=== PATIENT | female | born 1930 | race Caucasian/White ===

== ENCOUNTER 2018-01-13 13:22 | Inpatient (IN) | payer MEDICARE, BC ==
[2018-01-13] MEDS ORDERED: NS 0.9% 1000 ML* 1,000 ML IV ONE ×2 (13:26→20:30)
[2018-01-13] MEDS ORDERED: LORazepam INJ* 2 MG/ML 1 ML VIAL IV PUSH ONE ×2 (13:50→14:50)
[2018-01-13] MEDS ORDERED: LORazepam INJ* 2 MG/ML 1 ML VIAL ONE (13:51)
--- NOTE | 2018-01-13 13:56 | ED ---
Altered Mental Status - HPI Summary HPI Summary: Patient is an 87 y/o female BIBA who presents to the ED c/o AMS s/p fall. She was found by her house keeper on the floor. Last known well was yesterday during the day, it is speculated she fell at 20:00 last night. Patient has not been able to get up off the floor, and is disoriented. Patient is a level 5 caveat due to her AMS, therefor a proper history was not able to be obtained. - History Of Current Complaint Stated Complaint: CODE SAUER Time Seen by Provider: 01/13/18 13:25 Hx Obtained From: EMS Hx From Patient Unobtainable Due To: Altered Mental Status Last Known Well Date: 01/12/18 Onset/Duration: Unknown, Still Present Timing: Constant Character: Confusion Aggravating Factor(s): Unknown Alleviating Factor(s): Unknown - Allergies/Home Medications Allergies/Adverse Reactions: Allergies Allergy/AdvReac Type Severity Reaction Status Date / Time No Known Allergies Allergy Verified 08/13/12 10:24 Home Medications: Home Medications Dorzolamide/Timolol OPTH (NF) [Cosopt (NF)] 1 drop BOTH EYES BID 01/13/18 [ History Confirmed 01/13/18] PMH/Surg Hx/FS Hx/Imm Hx Endocrine/Hematology History: Reports: Hx Anemia Denies: Hx Anticoagulant Therapy, Hx Diabetes, Hx Thyroid Disease, Hx Unexplained Bleeding Cardiovascular History: Denies: Hx Aneurysm, Hx Angina, Hx Angioplasty, Hx Auto Implanted Cardiovert Defib, Hx Cardiac Arrest, Hx Cardiomegaly, Hx Congenital Heart Disease, Hx Congestive Heart Failure, Hx Coronary Artery Disease, Hx Deep Vein Thrombosis, Hx Hypercholesterolemia, Hx Hypotension, Hx Hypertension, Hx Pacemaker/ICD, Hx Peripheral Vascular Disease, Hx Rheumatic Fever, Hx Syncope, Hx Valvular Heart Disease, Other Cardiovascular Problems/Disorders Respiratory History: Denies: Hx Asthma, Hx Chronic Obstructive Pulmonary Disease (COPD) GI History: Reports: Hx Gall Bladder Disease, Hx Hiatal Hernia, Hx Ulcer History: Denies: Hx Renal Disease Musculoskeletal History: Reports: Hx Arthritis Sensory History: Reports: Hx Glaucoma, Hx Macular Degeneration - LEFT EYE Denies: Hx Vision Problem, Hx Deafness, Hx Hearing Aid, Hx Hearing Problem, Other Sensory Impairments Opthamlomology History: Reports: Hx Glaucoma, Hx Macular Degeneration - LEFT EYE Denies: Hx Vision Problem, Other Sensory Impairments Neurological History: Denies: Hx Dementia, Hx Developmental Delay, Hx Headaches, Hx Migraine, Hx Seizures, Hx Spinal Cord Injury, Hx Transient Ischemic Attacks (TIA), Other Neuro Impairments/Disorders Psychiatric History: Denies: Hx Substance Abuse - Surgical History Surgery Procedure, Year, and Place: KATE 1975. ANTOINE 1991 - Immunization History Date of Tetanus Vaccine: UNKNOWN Date of Influenza Vaccine: 2006 Infectious Disease History: Denies: Hx Clostridium Difficile, Hx Hepatitis, Hx Human Immunodeficiency Virus (HIV), Hx Shingles, Hx Tuberculosis - Family History Known Family History: Positive: Cardiac Disease - Social History Alcohol Use: None Hx Substance Use: No Substance Use Type: Reports: None Hx Tobacco Use: Yes Smoking Status (MU): Current Every Day Smoker Review of Systems Positive: Bruising Positive: Other - AMS All Other Systems Reviewed And Are Negative: No Physical Exam - Summary Physical Exam Summary: VITAL SIGNS: Reviewed. GENERAL: Patient is a well-developed and obese FEMALE who is lying comfortable in the stretcher. Patient is not in any acute respiratory distress. HEAD AND FACE: No signs of trauma. No ecchymosis, hematomas or skull depressions. No sinus tenderness. EYES: PERRLA, EOMI x 2, No injected conjunctiva, no nystagmus. EARS: Hearing grossly intact. Ear canals and tympanic membranes are within normal limits. MOUTH: Dry. NECK: Supple, non-tender, trachea is midline, no adenopathy, no JVD, no carotid bruit, no c-spine tenderness, neck with full ROM. CHEST: Symmetric, no tenderness at palpation LUNGS: Clear to auscultation bilaterally. No wheezing or crackles. CVS: Irregular rate and rhythm, S1 and S2 present, no murmurs or gallops appreciated. ABDOMEN: Soft, non-tender. No signs of distention. No rebound no guarding, and no masses palpated. Bowel sounds are normal. EXTREMITIES: Right elbow deformed with ecchymosis down to right forearm. Left wrist deformed with ecchymosis on forearm and wrist. Camp boot on RLE. NEURO: Alert but not oriented. Does not follow commands. No acute neurological deficits. Speech is normal. SKIN: Dry and warm GCS: 13 Triage Information Reviewed: Yes Vital Signs Reviewed: Yes Diagnostics - Laboratory Result Diagrams: 01/14/18 05:44 01/14/18 05:44 Lab Statement: Any lab studies that have been ordered have been reviewed, and results considered in the medical decision making process. - Radiology Elbow XR Xray Interpretation: Positive (See Comments) - 1. DISLOCATION OF THE RADIAL HEAD. 2. CHRONIC DISPLACED AND ANGULATED UNUNITED FRACTURE OF THE PROXIMAL ULNA. ED physician reviewed radiology report. Radiology Interpretation Completed By: Radiologist CXR Xray Interpretation: Positive (See Comments) - Stigmata of probable obstructive lung disease. Large retrocardiac hiatal hernia with associated mild compressive atelectasis at the medial lung bases. ED physician reviewed radiology report. Radiology Interpretation Completed By: Radiologist Humerus XR Xray Interpretation: Positive (See Comments) - Chronic appearing fracture dislocation at the elbow with pseudoarthrosis at the proximal ulna and probable pseudoarthrosis at the posterior displaced radius with the capitellum. Overlying soft tissue swelling. Negative for humeral fracture. Advanced arthropathy at the shoulder with humeral acromial abutment and remodeling favoring full-thickness rotator cuff tear. Diffuse decreased bone density and skeletal muscle atrophy. ED physician reviewed this radiology report. Radiology Interpretation Completed By: Radiologist Wrist XR Xray Interpretation: Positive (See Comments) - 1. TRANSVERSE IMPACTED FRACTURE OF THE DISTAL RIGHT RADIUS. 2. PROBABLE NONDISPLACED FRACTURE OF THE DISTAL RIGHT ULNA. 3. TRANSVERSE IMPACTED FRACTURE OF THE DISTAL LEFT RADIUS. 4. TRANSVERSE IMPACTED FRACTURE OF THE DISTAL LEFT ULNA. ED physician reviewed radiology report. Radiology Interpretation Completed By: Radiologist - CT Brain CT CT Interpretation: No Acute Changes - NO EVIDENCE FOR ACUTE INTRACRANIAL ABNORMALITY. ED physician reviewed radiology report. CT Interpretation Completed By: Radiologist - EKG 14:16 Cardiac Rate: NL - 73 bpm EKG Rhythm: Sinus Rhythm EKG Interpretation: LBBB Altered Mental Statu Course/Dx - Course Assessment/Plan: This is a 87-year-old female who presents to the emergency room via ambulance after the patient was found on the floor this afternoon by a cleaning lady they usually cleans her house on Fridays. As per EMS the last time she was seen well it was yesterday and apparently the patient fell at approximately 8 PM. as per EMS since then the patient has been in the floor. Patient is alert but not oriented. Seems that she is very confused. The patient has a deformity in the left wrist and the right elbow. Patient is unable to give any history. From the records the patient has history of glaucoma, macular degeneration,. GI bleed, glaucoma and osteoarthritis. Blood test results shows potassium 3.4, carbon dioxide of 11, anion gap of 20, glucose 217, magnesium 1.6, total creatine kinase of 419, troponin 0.04, and acetaminophen level of 133. Head CT impression: No evidence for acute intracranial abnormality. Chest x-ray Impression: Stigmata peripherally obstructive lung disease. Large retrocardiac hiatal hernia with associated mild compressive atelectasis of the mid lung bases. Elbow x-ray impression: Dislocation of the radial head. Chronic displaced and angulated fracture of the proximal ulna. Humerus x-ray. Chronic appearing fracture dislocation at the elbow. X-ray of the right humerus impression: Chronic appearing fracture dislocation of the elbow. Negative for fracture. Humeral fracture. See complete report as above. Bilateral wrist impression: Transverse impacted fracture of the distal right radius. Probably nondisplaced fracture of the distal right ulna. Transverse impacted fracture of the distal left radius. Transverse impacted fracture of the distal left ulna. Initially when the patient came in the patient was given IV fluids, she was placed in supposing as above the spectrum antibiotic. The acetaminophen level is elevated therefore the patient was given acetylcysteine. At this point I discussed my physical exam, findings and test results with Dr. Green who accepted the patient for admission. The patient is hemodynamically stable but still critical. - Diagnoses Provider Diagnoses: Acute alteration in mental status, Wrist fracture, bilateral, Hiatal hernia, Acetaminophen toxicity, Acetaminophen overdose - Provider Notifications Discussed Care Of Patient With: Pravin Green Time Discussed With Above Provider: 16:00 Instructed by Provider To: Admit As Inpatient - Critical Care Time Critical Care Time: 75-104 min Discharge - Sign-Out/Discharge Documenting (check all that apply): Patient Departure - Admit - Discharge Plan Condition: Stable Disposition: ADMITTED TO [facility] - Billing Disposition and Condition Condition: STABLE Disposition: Admitted to [facility] - Attestation Statements Document Initiated by Scribe: Yes Documenting Scribe: Kisha Denise Provider For Whom Scribe is Documenting (Include Credential): Nikko Lawrence MD Scribe Attestation: Kisha Noland, scribed for Nikko Lawrence MD on 01/14/18 at 0755. Scribe Documentation Reviewed: Yes Provider Attestation: The documentation as recorded by the Kisha dyer accurately reflects the service I personally performed and the decisions made by me, Nikko Lawrence MD
--- NOTE | 2018-01-13 14:24 | RAD ---
Indication: Shortness of breath. History of tobacco use. Obstructive lung disease. Comparison: August 13, 2012 Technique: Upright AP 1400 hours Report: Elevated lung volumes. Large retrocardiac hiatal hernia with associated mild compressive atelectasis at the medial lung bases. The lungs and pleural spaces are otherwise clear. Negative for pneumothorax. Top normal heart size accounting for AP technique and hiatal hernia. Unremarkable central pulmonary vasculature and mediastinal contours aside from the hiatal hernia. Advanced arthropathy of the shoulders noted. IMPRESSION: #. Stigmata of probable obstructive lung disease. #. Large retrocardiac hiatal hernia with associated mild compressive atelectasis at the medial lung bases.
--- NOTE | 2018-01-13 14:24 | RAD ---
INDICATION: Right elbow deformity. TECHNIQUE: 3 views of the right elbow were obtained. FINDINGS: There is lateral and posterior dislocation of the radial head relative to the distal humerus. This may be a chronic finding. There is a chronic ununited fracture of the proximal diaphysis of the ulna. The fracture fragments are displaced and angulated. IMPRESSION: 1. DISLOCATION OF THE RADIAL HEAD. 2. CHRONIC DISPLACED AND ANGULATED UNUNITED FRACTURE OF THE PROXIMAL ULNA.
--- NOTE | 2018-01-13 14:26 | RAD ---
Indication: RIGHT elbow deformity. Comparison: RIGHT elbow exam of the same date. Technique: AP and lateral views RIGHT humerus. REPORT AND IMPRESSION: #. Chronic appearing fracture dislocation at the elbow with pseudoarthrosis at the proximal ulna and probable pseudoarthrosis at the posterior displaced radius with the capitellum. Overlying soft tissue swelling. #. Negative for humeral fracture. #. Advanced arthropathy at the shoulder with humeral acromial abutment and remodeling favoring full-thickness rotator cuff tear. #. Diffuse decreased bone density and skeletal muscle atrophy.
--- NOTE | 2018-01-13 14:29 | RAD ---
INDICATION: Bilateral wrist pain. TECHNIQUE: 2 views of both wrists were obtained. FINDINGS: There is bilateral diffuse soft tissue swelling. There is a transverse impacted fracture of the right radial metaphysis. There is also suggestion of a nondisplaced fracture of the distal right ulna. The fractures are likely acute to subacute in duration. There is a transverse impacted fracture of the distal left radius. There is a transverse impacted fracture of the distal left ulna. The fractures appear subacute in duration. IMPRESSION: 1. TRANSVERSE IMPACTED FRACTURE OF THE DISTAL RIGHT RADIUS. 2. PROBABLE NONDISPLACED FRACTURE OF THE DISTAL RIGHT ULNA. 3. TRANSVERSE IMPACTED FRACTURE OF THE DISTAL LEFT RADIUS. 4. TRANSVERSE IMPACTED FRACTURE OF THE DISTAL LEFT ULNA.
[2018-01-13 15:01] LABS: ABS Basophils 0 10^3/ul (0-0.2); ABS Eosinophils 0 10^3/ul (0-0.6); ABS Lymphocytes 0.7 10^3/ul (1.0-4.8); ABS Monocytes 0.3 10^3/ul (0-0.8); ABS Neutrophils 4.4 10^3/ul (1.5-7.7); ABS Nucleated RBC 0 10^3/ul; Eosinophil % 0 % (0-6); Hematocrit 42 % (35-47); Hemoglobin 13.7 g/dl (12.0-16.0); Lymphocyte % 13.6 % (25-47); Mean Corpuscular HGB Conc 33 g/dl (31-36); Mean Corpuscular Hemoglobin 30 pg (27-31); Mean Corpuscular Volume 93 fL (80-97); Mean Platelet Volume 8.9 um3 (7.4-10.4); Nucleated Red Blood Cells % 0.1; Platelet Count 132 10^3/ul (150-450); Red Blood Count 4.53 10^6/ul (4.00-5.40); Red Cell Distribution Width 14 % (10.5-15); White Blood Count 5.5 10^3/ul (3.5-10.8)
[2018-01-13 15:06] LABS: INR 0.94 (0.77-1.02)
--- NOTE | 2018-01-13 15:15 | RAD ---
INDICATION: Altered mental status. COMPARISON: There are no relevant prior studies available for comparison. TECHNIQUE: Contiguous axial sections of the brain were obtained from the skull base to the vertex without contrast. The exam is limited due to motion artifact. FINDINGS: The ventricles, cisterns and sulci are enlarged consistent with age-related atrophy. No significant focal abnormality or mass effect is seen. There is no evidence for hemorrhage. No significant focal osseous abnormality is seen. The visualized portion of the paranasal sinuses and mastoid air cells appear clear. IMPRESSION: NO EVIDENCE FOR ACUTE INTRACRANIAL ABNORMALITY.
[2018-01-13 15:44] LABS: Urine Appearance Clear; Urine Blood Negative (Negative); Urine Color Yellow; Urine Ketones Negative (Negative); Urine Protein Negative (Negative); Urine Specific Gravity 1.024 (1.010-1.030); Urine Urobilinogen Negative (Negative)
[2018-01-13] MEDS ORDERED: Piperacillin/Tazobac ADVAN(*) 3.375 GM in NS 0.9% 100 ML* 100 ML IVPB ONE (16:02)
[2018-01-13] MEDS ORDERED: Magnesium Sulfate 1 GM IV* 1 GM/100 ML BAG IV ONE (16:20)
[2018-01-13 16:23] LABS: EGFR Non-African American 98.6 (>60)
[2018-01-13] MEDS ORDERED: ACETYLCYSTEINE IVPB ONE ×4 (16:30→22:00)
[2018-01-13] MEDS ORDERED: D5W IVPB ONE ×4 (16:30→22:00)
--- NOTE | 2018-01-13 17:04 | ADMNOTE ---
Subjective Date of Service: 01/13/18 Interval History: ADMISSION HISTORY AND PHYSICAL EXAM: Allergies Allergy/AdvReac Type Severity Reaction Status Date / Time No Known Allergies Allergy Verified 08/13/12 10:24 Home Medications Medication Instructions Recorded Confirmed Type Travoprost Z 0.004% OPHTH (NF) 1 drop BOTH EYES BEDTIME 08/13/12 01/13/18 History [Travatan Z 0.004% OPTH (NF)] Dorzolamide/Timolol OPTH (NF) 1 drop BOTH EYES BID 01/13/18 01/13/18 History [Cosopt (NF)] HPI: The patient is very obtunded and could not give any history. She has someone clean her home every Tuesday. That person came today and found her on the floor , unresponsive. 911 was called and she was brought to the ED. Her HCP Jerad Mclean came to the ED. He told me he saw her Tuesday. She had sprained her R ankle but still could walk a little bit with her walker. She otherwise seemed fine. She was not depressed. Family History: Findings - Father of heart disease. Social History: Findings - Lives alone. No alcohol abuse. Smoked in 07/2012, ? recently. SDM is her friend Jerad Mclean [phone]. Past Medical History: Findings - Cholecystectomy, KATE-BSO. No children. Glaucoma, macular degeneration, OA. Review of Systems - Measurements Intake and Output: Intake and Output Last 24 Hours 01/11/18 01/12/18 01/13/18 01/14/18 06:59 06:59 06:59 06:59 Intake Total 1000 Output Total 100 Balance 900 Weight 190 lb Intake: IV Fluids 1000 Output: Residual 100 Basurto 16 Fr 100 - Review of Systems General Comments: Not able to obtain due to poor LOC. Her friend Jerad Mclean and his had not noticed any change in her condition or new c/o up until the last time they had contact with her 3 days ago. Objective Active Medications: Dorzolamide/Timolol (Cosopt (Nf)) 1 drop BOTH EYES BID LETI; Protocol Heparin Sodium (Porcine) (Heparin Vial(*)) 5,000 units SUBCUT Q8HR LETI Potassium Chloride (Potassium Chloride 10 Meq/50 Ml Ivpremix*) 10 meq in 50 mls @ 50 mls/hr IV Q2H LETI Stop: 01/13/18 19:59 Acetylcysteine 12,955 mg/ (Dextrose) 264.775 mls @ 264.775 mls/hr IVPB ONCE ONE ; Protocol Stop: 01/13/18 17:29 Last Admin: 01/13/18 16:39 Dose: 264.775 mls/hr Acetylcysteine 4,318 mg/ (Dextrose) 521.59 mls @ 130.398 mls/hr IVPB ONCE ONE; Protocol Stop: 01/13/18 21:29 Piperacillin Sod/Tazobactam (Sod 3.375 gm/ Sodium Chloride) 100 mls @ 25 mls/ hr IVPB Q8H LETI Potassium Chloride/Sodium Chloride (Ns 0.9% W/ 20 Meq Kcl 1000 Ml*) 1,000 mls @ 100 mls/hr IV PER RATE LETI Travoprost (Travatan Z 0.004% Opth (Nf)) 1 drop BOTH EYES BEDTIME LETI; Protocol Vital Signs - 8 hr 01/13/18 01/13/18 01/13/18 14:10 14:12 14:21 Temperature 93.1 F Pulse Rate 72 67 Respiratory 12 15 16 Rate Blood Pressure 151/78 151/78 (mmHg) O2 Sat by Pulse 95 97 Oximetry 01/13/18 01/13/18 01/13/18 14:50 15:02 15:03 Temperature Pulse Rate 60 54 Respiratory 12 14 Rate Blood Pressure 113/57 (mmHg) O2 Sat by Pulse 95 95 Oximetry 01/13/18 01/13/18 01/13/18 15:33 16:00 16:44 Temperature 95 F Pulse Rate 59 Respiratory 12 19 Rate Blood Pressure 101/48 (mmHg) O2 Sat by Pulse 95 Oximetry Oxygen Devices in Use Now: Nasal Cannula Appearance: Very obtunded, onher R side on ED stretcher. Looks comfortable. Air-warmer covering her. Eyes: No Scleral Icterus Neck: NL Appearance and Movements; NL JVP, No Thyroid Enlargement, Masses Respiratory: Symmetrical Chest Expansion and Respiratory Effort, Clear to Auscultation, Clear to Percussion Cardiovascular: NL Sounds; No Murmurs; No JVD, RRR, No Edema, - Abdominal: NL Sounds; No Tenderness; No Distention, No Hepatosplenomegaly, - Extremities: No Edema, No Clubbing, Cyanosis, - Skin: No Nodules or Sclerosis, - - Ecchymosis L shoulder, L scapula, both wrists Neurological: - - No tremor. Unresponsive to voice or light touch, moving very little. Result Diagrams: 01/13/18 14:40 01/13/18 14:40 Assess/Plan/Problems-Billing Assessment: - Patient Problems (1) Sepsis Current Visit: Yes Status: Acute Comment: Received sepsis fluids, pip/josé miguel. Continue pip/josé miguel, NS+20meqKCL at 100/hr. Heating device in place. Repeat lactic acid 8 PM 01/13. Source not clear (2) Acetaminophen overdose Current Visit: Yes Status: Acute Code(s): T39.1X1A - POISONING BY 4- AMINOPHENOL DERIVATIVES, ACCIDENTAL, INIT SNOMED Code(s): 963540470 Comment: IV acetylcysteine started. Repeat level, LFT's 8PM 01/13 and AM . (3) Glaucoma Current Visit: Yes Status: Acute Code(s): H40.9 - UNSPECIFIED GLAUCOMA SNOMED Code(s): 54071412 Comment: Home eyedrops ordered. (4) Macular degeneration Current Visit: Yes Status: Acute Code(s): H35.30 - UNSPECIFIED MACULAR DEGENERATION SNOMED Code(s): 129340704 Comment: Dx noted. (5) Osteoarthritis Current Visit: Yes Status: Acute Code(s): M19.90 - UNSPECIFIED OSTEOARTHRITIS, UNSPECIFIED SITE SNOMED Code(s): 273116082 Comment: Was independent with a walker until this admission.
[2018-01-13] MEDS: NS 0.9% w/ 20 Meq KCL 1000 ML* 1,000 ML IV SCH (17:25)
[2018-01-13] MEDS: KCL 10 MEQ/50 ML IVPREMIX* 10 MEQ/50 ML BAG IV SCH ×2 (18:10→19:04)
[2018-01-13 20:54] LABS: INR 1.24 (0.77-1.02)
--- NOTE | 2018-01-13 21:34 | OP ---
Operative Report - Blank - Operative Report Date of Operation: 01/13/18 Note: Central Venous Catheter (CVC, Central Line) Placement Date: 01/13/18 Time: 9:00pm Indication: Hemodynamic monitoring/Intravenous access Attending: Esha Chow time-out was completed verifying correct patient, procedure, site, positioning , and special equipment if applicable. The patient was placed in a dependent position appropriate for central line placement based on the vein to be cannulated. The patients left neck was prepped and draped in sterile fashion. 1 % Lidocaine was used to anesthetize the surrounding skin area. A triple lumen 7- Chinese catheter was introduced into the the internal jugular vein> using the Seldinger technique and under ultrasound guidance. The catheter was threaded smoothly over the guide wire and appropriate blood return was obtained. Each lumen of the catheter was evacuated of air and flushed with sterile saline. The catheter was then sutured in place to the skin and a sterile dressing applied. Perfusion to the extremity distal to the point of catheter insertion was checked and found to be adequate. Estimated Blood Loss: None The patient tolerated the procedure well and there were no complications.
[2018-01-13] MEDS ORDERED: Norepinephrine VIAL* 1 MG/ML 4 ML VIAL ONE (22:17)
[2018-01-13 22:28] LABS: EGFR Non-African American 119.7 (>60)
[2018-01-13] MEDS: Latanoprost 0.005%* 2.5 ml BTL BOTH EYES SCH (22:38)
[2018-01-13] MEDS: CMC:Dorzolamide/Timolol OPTH (NF) 10 ML BOT BOTH EYES SCH (22:38)
[2018-01-13] MEDS: Heparin VIAL(*) 5000 UNITS/ML VIAL (FIVE THOUSAND) SUBCUT SCH (22:39)
[2018-01-14] MEDS: DOPamine 800 MG/250 ML IVPREM* 800 MG/250 ML ML CENTR SCH (00:03)
[2018-01-14] MEDS: Norepinephrine VIAL* 4 MG in NS 0.9% 250 ML* 246 ML IV SCH ×4 (00:10→22:20)
[2018-01-14] MEDS: Piperacillin/Tazobac ADVAN(*) 3.375 GM in NS 0.9% 100 ML* 100 ML IVPB SCH ×3 (01:04→16:23)
[2018-01-14] MEDS ORDERED: Ondansetron INJ* 2 MG/ML VIAL ONE (01:12)
[2018-01-14] MEDS: Ondansetron INJ* 2 MG/ML VIAL IV PRN ×2 (01:14→22:36)
[2018-01-14] MEDS ORDERED: Morphine INJ* 2 MG/ML 1 ML SYRINGE (TWO MG - NEW SYRINGE VERSION) IV PRN (03:21)
[2018-01-14] MEDS ORDERED: Morphine VIAL* 4 MG/ML VIAL (1 ml vial) IV ONE (03:29)
[2018-01-14] MEDS ORDERED: D5W IVPB ONE ×3 (04:00→13:00)
[2018-01-14] MEDS ORDERED: ACETYLCYSTEINE IVPB ONE ×3 (04:00→13:00)
--- NOTE | 2018-01-14 04:49 | PN ---
Progress Note - Progress Note Date of Service: 01/14/18 Note: Mrs Drummond mid-shift developed recurrent bradycardia setting off asystole alarms despite addition of norepinephrine GTT. Trial of dopamine GTT failed to resolve and the issues began to appear to be vaso-vagal related to nausea/ wretching and so ondansetron was ordered with improvement. Later, she was noted by nursing to vomit dark blood. Evaluation at that time revealed her tongue to be swollen and ecchymotic apparently having been bitten at some point. It was advised to keep the head of the bed at 30degrees or above and to continue monitoring. There was no tachycardia, hypotension, or airway obstruction.
[2018-01-14] MEDS: Heparin VIAL(*) 5000 UNITS/ML VIAL (FIVE THOUSAND) SUBCUT SCH ×3 (05:35→21:52)
[2018-01-14 05:55] LABS: ABS Basophils 0 10^3/ul (0-0.2); ABS Eosinophils 0 10^3/ul (0-0.6); ABS Lymphocytes 0.8 10^3/ul (1.0-4.8); ABS Monocytes 0.2 10^3/ul (0-0.8); ABS Neutrophils 6.5 10^3/ul (1.5-7.7); ABS Nucleated RBC 0 10^3/ul; Eosinophil % 0 % (0-6); Hematocrit 37 % (35-47); Hemoglobin 12.4 g/dl (12.0-16.0); Lymphocyte % 10.6 % (25-47); Mean Corpuscular HGB Conc 33 g/dl (31-36); Mean Corpuscular Hemoglobin 30 pg (27-31); Mean Corpuscular Volume 91 fL (80-97); Mean Platelet Volume 9.3 um3 (7.4-10.4); Nucleated Red Blood Cells % 0.1; Platelet Count 154 10^3/ul (150-450); Red Blood Count 4.08 10^6/ul (4.00-5.40); Red Cell Distribution Width 14 % (10.5-15); White Blood Count 7.6 10^3/ul (3.5-10.8)
[2018-01-14 06:08] LABS: INR 1.38 (0.77-1.02)
[2018-01-14 06:13] LABS: EGFR Non-African American 79.3 (>60)
[2018-01-14] MEDS ORDERED: Dextrose 50% Syringe 50 ML* 25 GM/50 ML SYRINGE IV PUSH PRN (07:38)
--- NOTE | 2018-01-14 07:49 | PN ---
Subjective Date of Service: 01/14/18 Interval History: She denies pain or hunge, offers no c/o. Family History: Findings - Father of heart disease. Social History: Findings - Lives alone. No alcohol abuse. Smoked in 07/2012, ? recently. SDM is her friend Jerad Mclean [phone]. Past Medical History: Findings - Cholecystectomy, KATE-BSO. No children. Glaucoma, macular degeneration, OA. Objective Active Medications: Dextrose (D50w Syringe 50 Ml*) 12.5 gm IV PUSH .FOR FS < 60 - SS PRN PRN Reason: FS < 60 Dorzolamide/Timolol (Cosopt (Nf)) 1 drop BOTH EYES BID LETI; Protocol Last Admin: 01/13/18 22:38 Dose: Not Given Heparin Sodium (Porcine) (Heparin Vial(*)) 5,000 units SUBCUT Q8HR LETI Last Admin: 01/14/18 05:35 Dose: 5,000 units Piperacillin Sod/Tazobactam (Sod 3.375 gm/ Sodium Chloride) 100 mls @ 25 mls/ hr IVPB Q8H LETI Last Admin: 01/14/18 01:04 Dose: 25 mls/hr Potassium Chloride/Sodium Chloride (Ns 0.9% W/ 20 Meq Kcl 1000 Ml*) 1,000 mls @ 100 mls/hr IV PER RATE [facility] Last Admin: 01/13/18 17:25 Dose: 100 mls/hr Acetylcysteine 8,636 mg/ (Dextrose) 1,043.18 mls @ 65.199 mls/hr IVPB ONCE ONE ; Protocol Stop: 01/14/18 13:29 Last Admin: 01/14/18 05:23 Dose: Not Given Norepinephrine Bitartrate 4 mg (/ Sodium Chloride) 250 mls @ 7.5 mls/hr IV Q8H LETI; Protocol Last Admin: 01/14/18 05:35 Dose: Not Given Dopamine HCl/Dextrose (Dopamine 800 Mg/250 Ml Ivprem*) 800 mg in 250 mls @ 7.819 mls/hr CENTR Q24H LETI; Protocol Last Admin: 01/14/18 00:03 Dose: 7.819 mls/hr Acetylcysteine 4,318 mg/ (Dextrose) 521.59 mls @ 130.398 mls/hr IVPB ONCE ONE; Protocol Stop: 01/14/18 07:59 Last Admin: 01/14/18 03:51 Dose: 130.398 mls/hr Acetylcysteine 4,318 mg/ (Dextrose) 521.59 mls @ 130.398 mls/hr IVPB ONCE ONE; Protocol Stop: 01/14/18 11:59 Insulin Human Lispro (Humalog*) 0 units SUBCUT Q6HR LETI; Protocol Latanoprost (Xalatan 0.005%*) 1 drop BOTH EYES BEDTIME LETI; Protocol Last Admin: 01/13/18 22:38 Dose: 1 drop Morphine Sulfate (Morphine Vial*) 2 mg IV Q4H PRN PRN Reason: PAIN Ondansetron HCl (Zofran Inj*) 4 mg IV Q4H PRN PRN Reason: n/v Last Admin: 01/14/18 01:14 Dose: 4 mg Vital Signs - 8 hr 01/13/18 01/14/18 01/14/18 23:46 00:00 00:09 Pulse Rate 74 84 80 Respiratory 19 12 18 Rate Blood Pressure 150/68 119/88 (mmHg) O2 Sat by Pulse 97 97 98 Oximetry 01/14/18 01/14/18 01/14/18 00:15 00:30 00:46 Pulse Rate 77 80 94 Respiratory 24 22 20 Rate Blood Pressure 143/72 141/82 192/82 (mmHg) O2 Sat by Pulse 97 97 94 Oximetry 01/14/18 01/14/18 01/14/18 00:47 01:00 01:01 Pulse Rate 107 81 81 Respiratory 15 18 25 Rate Blood Pressure 187/88 157/75 (mmHg) O2 Sat by Pulse 96 95 97 Oximetry 01/14/18 01/14/18 01/14/18 01:16 01:30 01:46 Pulse Rate 70 69 79 Respiratory 7 9 13 Rate Blood Pressure 105/61 119/52 148/70 (mmHg) O2 Sat by Pulse 96 97 97 Oximetry 01/14/18 01/14/18 01/14/18 02:00 02:01 02:15 Pulse Rate 81 Respiratory 17 20 22 Rate Blood Pressure 141/69 150/71 (mmHg) O2 Sat by Pulse 98 Oximetry 01/14/18 01/14/18 01/14/18 02:31 02:46 03:00 Pulse Rate 80 78 79 Respiratory 14 19 20 Rate Blood Pressure 85/73 142/61 (mmHg) O2 Sat by Pulse 97 98 97 Oximetry 01/14/18 01/14/18 01/14/18 03:01 03:31 04:00 Pulse Rate 83 76 Respiratory 23 18 24 Rate Blood Pressure 159/69 (mmHg) O2 Sat by Pulse 98 98 Oximetry 01/14/18 01/14/18 05:00 06:00 Pulse Rate 65 70 Respiratory 16 23 Rate Blood Pressure 123/64 (mmHg) O2 Sat by Pulse 95 100 Oximetry Oxygen Devices in Use Now: Nasal Cannula Appearance: Lethargic, partly up in ICU bed. Occ has bloody fluid coming from her mouth. Quiet. Eyes: No Scleral Icterus Neck: NL Appearance and Movements; NL JVP, No Thyroid Enlargement, Masses Respiratory: Symmetrical Chest Expansion and Respiratory Effort, Clear to Auscultation, Clear to Percussion Cardiovascular: NL Sounds; No Murmurs; No JVD, RRR, No Edema, - Extremities: No Edema, No Clubbing, Cyanosis, - - Both wrists in splints Skin: No Nodules or Sclerosis, - - No change ecchymosis L shoulder and L scapula Neurological: NL Sensation - She can state her full name and her age, knows she is in a hospital. No tremor. Result Diagrams: 01/14/18 05:44 01/14/18 05:44 Microbiology and Other Data: Microbiology 01/13/18 15:56 Aerobic Blood Culture - Final Blood Venous Not Reportable Anaerobic Blood Culture - Final Not Reportable 01/13/18 17:30 Nasal Screen MRSA (PCR) - Final Nasal Mrsa Not Detected Assess/Plan/Problems-Billing Assessment: - Patient Problems (1) Sepsis Current Visit: Yes Status: Acute Comment: Received sepsis fluids, pip/josé miguel. Continue pip/josé miguel, NS+20meqKCL at 100/hr. Temp up to 97.8 without warmer. Repeat lactic acid was wnl. Source not clear (2) Acetaminophen overdose Current Visit: Yes Status: Acute Code(s): T39.1X1A - POISONING BY 4- AMINOPHENOL DERIVATIVES, ACCIDENTAL, INIT SNOMED Code(s): 356360712 Comment: Continue IV acetylcysteine. LFT's somewhat worse 01/14. I updated Poison Control 01/14. (3) Glaucoma Current Visit: Yes Status: Acute Code(s): H40.9 - UNSPECIFIED GLAUCOMA SNOMED Code(s): 30075793 Comment: Home eyedrops ordered. (4) Macular degeneration Current Visit: Yes Status: Acute Code(s): H35.30 - UNSPECIFIED MACULAR DEGENERATION SNOMED Code(s): 616378825 Comment: Dx noted. (5) Osteoarthritis Current Visit: Yes Status: Acute Code(s): M19.90 - UNSPECIFIED OSTEOARTHRITIS, UNSPECIFIED SITE SNOMED Code(s): 990236512 Comment: Was independent with a walker until this admission. (6) Wrist fracture, bilateral Current Visit: Yes Status: Acute Code(s): S62.101A - FRACTURE OF UNSP CARPAL BONE, RIGHT WRIST, INIT FOR CLOS FX; S62.102A - FRACTURE OF UNSP CARPAL BONE, LEFT WRIST, INIT FOR CLOS FX SNOMED Code(s): 372791714 Comment: Dr. Bardales consulted.
--- NOTE | 2018-01-14 07:55 | RAD ---
HISTORY: CENTRAL LINE PLACEMENT COMPARISONS: January 13, 2018 at 2:00 PM VIEWS: 1: frontal AP view of the chest at 9:34 PM FINDINGS: LINES AND TUBES: There has been interval placement of a left-sided internal jugular venous catheter with the tip overlying the cavoatrial junction. CARDIOMEDIASTINAL SILHOUETTE: The cardiomediastinal silhouette is stable. PLEURA: The costophrenic angles are sharp. No pleural abnormalities are noted. There is no appreciable pneumothorax. LUNG PARENCHYMA: There is hyperinflation. ABDOMEN: There is large hiatal hernia. BONES AND SOFT TISSUES: No bone or soft tissue abnormalities are noted. IMPRESSION: LINES AND TUBES ABOVE. NO ACTIVE CARDIOPULMONARY DISEASE. R1
--- NOTE | 2018-01-14 11:53 | CONSULT ---
Consult Consult: Ortho Consult Date: 01/14/18 Requesting service: Hospitalist CC: None HPI: 87F in ICU with sepsis, found down yesterday, unresponsive. Last seen 4 days prior. She was BIBEMS and admitted to the ICU for sepsis, acetaminophen overdose. She was found on xrays to have b/l distal radius fractures and chronic appearing R elbow Monteggia fx/dislocation. Her friends report the elbow injury is from "many years ago" and she uses the arm fine for ambulation with her walker. On my exam this morning Sade is minimally arousable and not able to answer questions. PMH: OA, glaucoma, macular degeneration PSH: cholecystectomy, KATE-BSO Home meds: travaprost and dorzolamide/timolol eyedrops NKDA Social hx: Lives alone. Has friend who helps her 3x/week. No smoking. Fam Hx: heart disease ROS:unable to obtain PE: Temp Pulse Resp BP Pulse Ox 97.8 F 70 23 123/64 100 01/14/18 08:00 01/14/18 06:00 01/14/18 06:00 01/14/18 06:00 01/14/18 06:00 In ICU, minimally arousable and repsonsive. Skin intact in b/l UE's Bruising at b/l wrists. No obvious discomfort with palpation of wrists. palpable radial pulses. finger wwp with good cap refill Unable to assess motor/sensory No obvious discomfort with elbow palpation or ROM. 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 No obvious deformities of b/l LE's Imaging: R shoulder - RTC arthropathy R elbow - Chronic appearing Monteggia fx/dislocation B/L wrists: displaced DRF's A/P: 87F is ICU, found down for unknown period of time, admitted in ICU with sepsis and acetaminophen overdoe. Found to have b/l DRF's. She is minimally arousable and repsonsive currently. Continue velcro wrist braces for now to aid in access. When more responsive/active we can place formal plaster splints. Jesus Bardales MD
[2018-01-14] MEDS: Insulin LISPRO* 1 UNITS UNIT SUBCUT SCH ×2 (12:00→18:29)
[2018-01-14 12:04] LABS: ABS Basophils 0 10^3/ul (0-0.2); ABS Eosinophils 0 10^3/ul (0-0.6); ABS Lymphocytes 0.9 10^3/ul (1.0-4.8); ABS Monocytes 0.3 10^3/ul (0-0.8); ABS Neutrophils 8.3 10^3/ul (1.5-7.7); ABS Nucleated RBC 0 10^3/ul; Eosinophil % 0 % (0-6); Hematocrit 36 % (35-47); Mean Corpuscular HGB Conc 34 g/dl (31-36); Mean Corpuscular Hemoglobin 31 pg (27-31); Mean Corpuscular Volume 91 fL (80-97); Nucleated Red Blood Cells % 0; Platelet Count 151 10^3/ul (150-450); Red Blood Count 3.91 10^6/ul (4.00-5.40); Red Cell Distribution Width 14 % (10.5-15); White Blood Count 9.5 10^3/ul (3.5-10.8)
[2018-01-14 12:20] LABS: EGFR Non-African American 78.1 (>60)
[2018-01-14] MEDS ORDERED: Magnesium Sulfate 2 GM IV* 2 GM/50 ML BAG IVPB ONE (12:28)
[2018-01-14] MEDS: NS 0.9% w/ 20 Meq KCL 1000 ML* 1,000 ML IV SCH (13:48)
[2018-01-14] MEDS: CMC:Dorzolamide/Timolol OPTH (NF) 10 ML BOT BOTH EYES SCH ×2 (16:20→20:57)
[2018-01-14] MEDS: D5W IVPB SCH ×2 (16:35→20:59)
[2018-01-14] MEDS: ACETYLCYSTEINE IVPB SCH ×2 (16:35→20:59)
--- NOTE | 2018-01-14 18:42 | CONS ---
GASTROENTEROLOGY CONSULT: DATE: 01/14/18 CONSULTING PHYSICIAN: Minesh Green REASON FOR CONSULT: Rising acetaminophen level in a women admitted obtunded with multiple arm fractures with a question of gastric retention. HISTORY OF PRESENT ILLNESS: This 87-year-old woman, who lives alone and has no family here in [place], was found unresponsive sitting in a chair yesterday where she had been placed by the rescue squad the evening before. She was brought to the ER and bilateral forearm fractures found. Her Tylenol level was found to be elevated and she was started on acetylcysteine intravenously. She has been watched in the ICU and her Tylenol level has not fallen and indeed after edging downward has risen back up to 402. She has been on IV continuous acetylcysteine and with that, her liver functions have appeared stable with ALT of 87 at noon today; actually down slightly from 6 a.m. Her bilirubin has stayed normal at 0.80. Her INR has gone up to 1.38, significance unclear. Her tox screen has not shown any other substance. Per the nurses, friends who have gone to the home say only Tylenol and her eye drops were there. The Tylenol bottle was over half full. No NSAIDs were present. She is not known to take sedatives or other psychiatric medications. In 2012, when she was admitted with a GI bleed she was told to avoid NSAIDs. It was said she had not seen a physician in a number of years and indeed she has not had any hospital interaction in 5 years, with her most recent visit to the lab, October 2012, from Dr. Luda May, a [facility] physician. PAST MEDICAL HISTORY: 1. Large hiatal hernia - documented in Dr. Garnica's, July 2012, EGD. 2. History of peptic ulcer - seen at the above endoscopy. 3. Status post cholecystectomy. 4. Status post total abdominal hysterectomy. 5. Macular degeneration. 6. Osteoarthritis. 7. Glaucoma - on eye drops. SOCIAL HISTORY: She lives alone. She has no children. In the emergency room, a friend, Jerad Rodarte, accompanied her. REVIEW OF SYSTEMS: It was said that she had broken both wrists in a fall this past week. She had a prior right humeral Fx. She was actually picked up off the floor , 01/11/18, and refused to come to the hospital. She was found in the chair still obtunded and unable to protest being brought to the hospital the next day. There is no history of OH, TIA, seizures, hepatitis, jaundice, underlying liver disease. Otherwise, the review of systems is difficult to obtain given her obtundation. PHYSICAL EXAM: She is in the ICU with dried secretions in her mouth. She groans and opens her eyes when requested, but does not answer questions. Her respirations seem unlabored and there is no mucus or cough. HEENT exam shows no icterus. She has no adenopathy. Breath sounds are present, but she does not breathe to command. Heart sounds are regular. The abdomen is soft and nontender. Rectal: Deferred. Extremities show 1+ ankle edema. Her fracture deformity is in the arms. Neurologic can only be assessed as described. LABORATORY DATA: Today, white count 9.5, hemoglobin 12.0, hematocrit 36, platelets 151. INR 1.38. Sodium 138, potassium 3.3, BUN 18, creatinine 0.71. Ammonia 37 (yesterday). CPK 282, which is edging downward. TSH 0.92. Urine output - excellent per the nurses. Tox screen showed no salicylates, no opiates, no benzodiazepines, and no alcohol. IMPRESSION: This 87-year-old woman, who seems to avoid all medical care if possible and objects to being transported for medical care when she is able, is now obtunded. She remains that way somewhat out of proportion to the resuscitation, which has raised her body temperature 3.5 degrees and given her plenty of fluids. Her electrolytes are fine. While her liver function tests are a little bit off, acetaminophen is not causing any major liver injury thus far and is not a sedative. One mystery is why her acetaminophen levels have risen over the last 24 hours. She certainly could have an accumulation of acetaminophen in her large hiatal hernia. Question arises as to whether to endoscope her and try to assess retained pills or bezoar and try to evacuate them or to press on with an extended period of an acetylcysteine infusion. Since she appears to be very frail and high risk for an endoscopy, continuing the infusion is the choice we are making currently. It will be reevaluated daily. This has been discussed with the hospitalist. [id number]/[facility] #: [id number] TOÑO
[2018-01-14] MEDS: NS 0.9% w/ 40 Meq KCL 1000 ML* 1,000 ML IV SCH (19:39)
[2018-01-14] MEDS: Latanoprost 0.005%* 2.5 ml BTL BOTH EYES SCH (21:00)
[2018-01-15 00:12] LABS: INR 1.74 (0.77-1.02)
[2018-01-15] MEDS: DOPamine 800 MG/250 ML IVPREM* 800 MG/250 ML ML CENTR SCH (00:26)
[2018-01-15] MEDS: Insulin LISPRO* 1 UNITS UNIT SUBCUT SCH ×5 (00:29→23:34)
[2018-01-15] MEDS: Piperacillin/Tazobac ADVAN(*) 3.375 GM in NS 0.9% 100 ML* 100 ML IVPB SCH ×4 (00:29→23:36)
[2018-01-15] MEDS: D5W IVPB SCH ×5 (01:26→23:11)
[2018-01-15] MEDS: ACETYLCYSTEINE IVPB SCH ×5 (01:26→23:11)
[2018-01-15 05:54] LABS: ABS Basophils 0 10^3/ul (0-0.2); ABS Eosinophils 0 10^3/ul (0-0.6); ABS Lymphocytes 1.1 10^3/ul (1.0-4.8); ABS Monocytes 0.2 10^3/ul (0-0.8); ABS Nucleated RBC 0 10^3/ul; Eosinophil % 0 % (0-6); Hematocrit 36 % (35-47); Hemoglobin 11.5 g/dl (12.0-16.0); Lymphocyte % 9.2 % (25-47); Mean Corpuscular HGB Conc 32 g/dl (31-36); Mean Corpuscular Hemoglobin 30 pg (27-31); Mean Corpuscular Volume 93 fL (80-97); Mean Platelet Volume 9.4 um3 (7.4-10.4); Nucleated Red Blood Cells % 0; Platelet Count 154 10^3/ul (150-450); Red Blood Count 3.83 10^6/ul (4.00-5.40); Red Cell Distribution Width 15 % (10.5-15); White Blood Count 12.3 10^3/ul (3.5-10.8)
[2018-01-15 06:01] LABS: INR 2.18 (0.77-1.02)
[2018-01-15] MEDS: Heparin VIAL(*) 5000 UNITS/ML VIAL (FIVE THOUSAND) SUBCUT SCH (06:44)
[2018-01-15] MEDS: NS 0.9% w/ 40 Meq KCL 1000 ML* 1,000 ML IV SCH (09:05)
[2018-01-15] MEDS ORDERED: D5W IVPB ONE (09:30)
[2018-01-15] MEDS ORDERED: ACETYLCYSTEINE IVPB ONE (09:30)
[2018-01-15] MEDS ORDERED: Pantoprazole IV* 40 MG IV ONE (10:06)
[2018-01-15] MEDS: Pantoprazole IV* 80 MG in NS 0.9% 250 ML* 250 ML IVPB SCH ×2 (10:44→20:48)
[2018-01-15] MEDS ORDERED: D5W IVPB SCH (11:00)
[2018-01-15] MEDS ORDERED: ACETYLCYSTEINE IVPB SCH (11:00)
[2018-01-15] MEDS: CMC:Dorzolamide/Timolol OPTH (NF) 10 ML BOT BOTH EYES SCH ×2 (11:13→20:50)
[2018-01-15] MEDS: KCL 20 MEQ/100 ML IVPREMIX* 20 MEQ/100 ML BAG IV SCH ×4 (14:30→23:05)
--- NOTE | 2018-01-15 15:59 | PN ---
Subjective Date of Service: 01/15/18 Interval History: Pt is reportedly back to baseline in terms of her mental status. She denies any pain at this time. She is somewhat fearful about eating due to the concerns for a GI Bleed. Nursing notes the patient has not been vomiting today but she has passed some melena. She has also been having short runs of complete heart block. She is asymptomatic with this (no lightheadedness/LOC). Objective Active Medications: Dextrose (D50w Syringe 50 Ml*) 12.5 gm IV PUSH .FOR FS < 60 - SS PRN PRN Reason: FS < 60 Dorzolamide/Timolol (Cosopt (Nf)) 1 drop BOTH EYES BID LETI; Protocol Last Admin: 01/15/18 11:13 Dose: Not Given Piperacillin Sod/Tazobactam (Sod 3.375 gm/ Sodium Chloride) 100 mls @ 25 mls/ hr IVPB Q8H LETI Last Admin: 01/15/18 08:20 Dose: 25 mls/hr Pantoprazole Sodium 80 mg/ (Sodium Chloride) 250 mls @ 25 mls/hr IVPB Q10H LETI Last Admin: 01/15/18 10:44 Dose: 25 mls/hr Acetylcysteine 4,818 mg/ (Dextrose) 524.09 mls @ 131.023 mls/hr IVPB Q4H LETI; Protocol Potassium Chloride (Potassium Chloride 20 Meq/100 Ml Ivpremix*) 20 meq in 100 mls @ 50 mls/hr IV Q2H LETI Stop: 01/15/18 17:59 Last Admin: 01/15/18 14:30 Dose: 50 mls/hr Insulin Human Lispro (Humalog*) 0 units SUBCUT Q6HR LETI; Protocol Last Admin: 01/15/18 14:32 Dose: Not Given Morphine Sulfate (Morphine Vial*) 2 mg IV Q4H PRN PRN Reason: PAIN Ondansetron HCl (Zofran Inj*) 4 mg IV Q4H PRN PRN Reason: n/v Last Admin: 01/14/18 22:36 Dose: 4 mg Travoprost (Travatan Z 0.004% Opth (Nf)) 1 drop BOTH EYES BEDTIME LETI; Protocol Vital Signs - 8 hr 01/15/18 01/15/18 08:00 11:46 Temperature 97.6 F 97.6 F Oxygen Devices in Use Now: None Appearance: Elderly female sitting up in bed, NAD Eyes: No Scleral Icterus Ears/Nose/Mouth/Throat: Mucous Membranes Moist, - - Tongue is markedly bruised and mildly swollen (reportedly better than yesterday) Respiratory: Symmetrical Chest Expansion and Respiratory Effort, Clear to Auscultation Cardiovascular: NL Sounds; No Murmurs; No JVD, RRR, - - non-pitting edema of the bilateral forearms Abdominal: NL Sounds; No Tenderness; No Distention Extremities: No Clubbing, Cyanosis, - - B/L wrists in soft splints, bruising and non-pitting edema of the B/L forearms Skin: No Nodules or Sclerosis, - - petechiae to L neck and R humerus (had sling on previously and the findings are at the site of the sling rubbing). Bruising also noted to scattered areas on the posterior shoulders. Neurological: Alert and Oriented x 3 Result Diagrams: 01/15/18 05:43 01/15/18 05:43 Microbiology and Other Data: Microbiology 01/13/18 15:56 Aerobic Blood Culture - Final Blood Venous Not Reportable Anaerobic Blood Culture - Final Not Reportable 01/13/18 17:30 Nasal Screen MRSA (PCR) - Final Nasal Mrsa Not Detected Assess/Plan/Problems-Billing Ms Drummond is an 87 yo F who had a fall backwards at home, called for help but refused to come to the ER, placed in a chair and then when check on about 12hr later was found unresponsive on the floor and ultimately found to be toxic from an unintentional acetaminophen overdose, with now concerns for GI bleed, and 3rd degree heart block. She was also found to have bilateral distal radius fractures. - Patient Problems (1) Acetaminophen overdose Current Visit: Yes Status: Acute Code(s): T39.1X1A - POISONING BY 4- AMINOPHENOL DERIVATIVES, ACCIDENTAL, INIT SNOMED Code(s): 775759811 Comment: Pt with unintentional tylenol OD. Her LFTs are markedly elevated today. Continuing NAC per poision control. Repeat labs early this evening. (2) Complete heart block Current Visit: Yes Status: Acute Code(s): I44.2 - ATRIOVENTRICULAR BLOCK, COMPLETE SNOMED Code(s): 97924650 Comment: Pt has been having short intervals of complete heart block that is asymptomatic. Replete K to >4 and check echo tomorrow. Cards consult tomorrow. (3) Upper GI bleed Current Visit: Yes Status: Acute Code(s): K92.2 - GASTROINTESTINAL HEMORRHAGE, UNSPECIFIED SNOMED Code(s): 07496852 Comment: Pt has been having melena and coffee ground emesis. She does not take NSAIDs given her prior h/o gastric ulcer. ? secondary to camerons erosions in the setting of an elevated INR from tylenol OD. Start protonix drip. GI not going to scope at this point. (4) Wrist fracture, bilateral Current Visit: Yes Status: Acute Code(s): S62.101A - FRACTURE OF UNSP CARPAL BONE, RIGHT WRIST, INIT FOR CLOS FX; S62.102A - FRACTURE OF UNSP CARPAL BONE, LEFT WRIST, INIT FOR CLOS FX SNOMED Code(s): 157895934 Comment: Pt with bilateral distal radius fractures. Plan for plaster splints to be placed tomorrow. Pt will likely need STR on d/c. (5) Sepsis Current Visit: Yes Status: Acute Comment: On admission pt with concern for sepsis as cause of being found down though no source of infection has yet to be identified. She briefly required pressors though likely related to being dehydrated. Will continue zosyn for today but tomorrow if no infection found could likely stop with close observation of the patient for recurrent signs of sepsis. (6) DVT prophylaxis Current Visit: Yes Status: Acute Code(s): NYH9376 - SNOMED Code(s): 423396297 Comment: SCDs- no SQ heparin while having melena (7) DNR (do not resuscitate) Current Visit: Yes Status: Acute
[2018-01-15 16:52] LABS: INR 2.33 (0.77-1.02)
[2018-01-15 17:01] LABS: EGFR Non-African American 55.8 (>60)
[2018-01-15] MEDS ORDERED: Atropine SYRINGE* 0.1 MG/ML 10 ML SYRINGE (1 MG) IV PUSH ONE (20:35)
[2018-01-15] MEDS ORDERED: Atropine SYRINGE* 0.1 MG/ML 10 ML SYRINGE (1 MG) ONE (20:37)
[2018-01-15] MEDS: PTO:Travoprost Z 0.004% OPHTH (NF) 2.5 ML BTL BOTH EYES SCH (20:50)
[2018-01-15] MEDS: Norepinephrine VIAL* 4 MG in NS 0.9% 250 ML* 246 ML IV SCH (21:09)
--- NOTE | 2018-01-15 21:16 | PN ---
Progress Note - Progress Note Date of Service: 01/15/18 Note: Mrs Drummond is having brief episodes of asympotomatic 3rd degree AV block. I called and discussed with Mr aguirre, her HCP, that should this become symptomatic or terminal her MOLST precludes resuscitation. However, at this time she is asymptomatic and the option for management with the end goal of potentially placing a pacemaker would be an option. He stated that he felt she would not want a pacer placed at her age. As such, we will not place pacer pads. I will make atropine available at the bedside PRN as he felt it reasonable to try medications.
[2018-01-15 23:10] LABS: ABS Basophils 0 10^3/ul (0-0.2); ABS Eosinophils 0 10^3/ul (0-0.6); ABS Lymphocytes 1.1 10^3/ul (1.0-4.8); ABS Monocytes 0 10^3/ul (0-0.8); ABS Neutrophils 8.4 10^3/ul (1.5-7.7); ABS Nucleated RBC 0 10^3/ul; Eosinophil % 0 % (0-6); Hematocrit 32 % (35-47); Hemoglobin 10.6 g/dl (12.0-16.0); Lymphocyte % 11.2 % (25-47); Mean Corpuscular HGB Conc 33 g/dl (31-36); Mean Corpuscular Hemoglobin 30 pg (27-31); Mean Corpuscular Volume 92 fL (80-97); Mean Platelet Volume 9.7 um3 (7.4-10.4); Nucleated Red Blood Cells % 0; Platelet Count 107 10^3/ul (150-450); Red Blood Count 3.49 10^6/ul (4.00-5.40); Red Cell Distribution Width 14 % (10.5-15); White Blood Count 9.5 10^3/ul (3.5-10.8)
[2018-01-15 23:23] LABS: INR 2.18 (0.77-1.02)
[2018-01-15 23:24] LABS: EGFR Non-African American 51.4 (>60)
[2018-01-15] MEDS ORDERED: Albuterol 2.5 MG/3 ML NEB.SOL* (0.083%) INH PRN (23:49)
[2018-01-16] MEDS: D5W IVPB SCH ×5 (03:05→20:53)
[2018-01-16] MEDS: ACETYLCYSTEINE IVPB SCH ×5 (03:05→20:53)
[2018-01-16] MEDS ORDERED: guaiFENesin/CODIEN 100MG-10MG* 5 ML UDC PO PRN (04:00)
[2018-01-16] MEDS: Morphine VIAL* 4 MG/ML VIAL (1 ml vial) IV PRN (04:29)
[2018-01-16 05:51] LABS: ABS Basophils 0 10^3/ul (0-0.2); ABS Eosinophils 0 10^3/ul (0-0.6); ABS Lymphocytes 0.9 10^3/ul (1.0-4.8); ABS Monocytes 0.1 10^3/ul (0-0.8); ABS Neutrophils 9.1 10^3/ul (1.5-7.7); ABS Nucleated RBC 0 10^3/ul; Eosinophil % 0 % (0-6); Hematocrit 30 % (35-47); Hemoglobin 10.1 g/dl (12.0-16.0); Lymphocyte % 8.7 % (25-47); Mean Corpuscular HGB Conc 33 g/dl (31-36); Mean Corpuscular Hemoglobin 30 pg (27-31); Mean Corpuscular Volume 91 fL (80-97); Mean Platelet Volume 10.3 um3 (7.4-10.4); Nucleated Red Blood Cells % 0; Platelet Count 103 10^3/ul (150-450); Red Blood Count 3.32 10^6/ul (4.00-5.40); Red Cell Distribution Width 15 % (10.5-15)
[2018-01-16 06:03] LABS: INR 1.86 (0.77-1.02)
[2018-01-16] MEDS ORDERED: Dexamethasone IV* 4 MG/ML 1 ML (4 MG) ONE (06:03)
[2018-01-16 06:14] LABS: EGFR Non-African American 46.6 (>60)
[2018-01-16] MEDS: Pantoprazole IV* 80 MG in NS 0.9% 250 ML* 250 ML IVPB SCH ×2 (06:27→18:09)
[2018-01-16] MEDS ORDERED: Dexamethasone IV* 4 MG/ML 5 ML VIAL (20 MG) ONE (06:30)
[2018-01-16] MEDS: Piperacillin/Tazobac ADVAN(*) 3.375 GM in NS 0.9% 100 ML* 100 ML IVPB SCH (07:35)
[2018-01-16] MEDS: Insulin LISPRO* 1 UNITS UNIT SUBCUT SCH ×4 (07:35→23:48)
--- NOTE | 2018-01-16 07:52 | PN ---
Subjective Date of Service: 01/16/18 Interval History: Pt states she is thirsty. Family History: Findings - Father of heart disease. Social History: Findings - Lives alone. No alcohol abuse. Smoked in 07/2012, ? recently. SDM is her friend Jerad Mclean [phone]. Past Medical History: Findings - Cholecystectomy, KATE-BSO. No children. Glaucoma, macular degeneration, OA. Objective Active Medications: Albuterol (Ventolin 2.5 Mg/3 Ml Neb.Brenna*) 2.5 mg INH Q4H PRN PRN Reason: SOB/WHEEZING Last Admin: 01/16/18 01:27 Dose: 2.5 mg Dextrose (D50w Syringe 50 Ml*) 12.5 gm IV PUSH .FOR FS < 60 - SS PRN PRN Reason: FS < 60 Dorzolamide/Timolol (Cosopt (Nf)) 1 drop BOTH EYES BID LETI; Protocol Last Admin: 01/15/18 20:50 Dose: Not Given Guaifenesin/Codeine Phosphate (Robitussin Ac 100mg-10mg*) 5 ml PO Q4H PRN PRN Reason: COUGH Last Admin: 01/16/18 04:14 Dose: 5 ml Piperacillin Sod/Tazobactam (Sod 3.375 gm/ Sodium Chloride) 100 mls @ 25 mls/ hr IVPB Q8H LETI Last Admin: 01/16/18 07:35 Dose: 25 mls/hr Pantoprazole Sodium 80 mg/ (Sodium Chloride) 250 mls @ 25 mls/hr IVPB Q10H LETI Last Admin: 01/16/18 06:27 Dose: 25 mls/hr Acetylcysteine 4,818 mg/ (Dextrose) 524.09 mls @ 131.023 mls/hr IVPB Q4H LETI; Protocol Last Admin: 01/16/18 07:45 Dose: 131.023 mls/hr Potassium Chloride (Potassium Chloride 20 Meq/100 Ml Ivpremix*) 20 meq in 100 mls @ 50 mls/hr IV Q2H LETI Stop: 01/16/18 11:59 Insulin Human Lispro (Humalog*) 0 units SUBCUT Q6HR LETI; Protocol Last Admin: 01/16/18 07:35 Dose: 2 unit Morphine Sulfate (Morphine Vial*) 2 mg IV Q4H PRN PRN Reason: PAIN Last Admin: 01/16/18 04:29 Dose: 1 mg Ondansetron HCl (Zofran Inj*) 4 mg IV Q4H PRN PRN Reason: n/v Last Admin: 01/14/18 22:36 Dose: 4 mg Travoprost (Travatan Z 0.004% Opth (Nf)) 1 drop BOTH EYES BEDTIME LETI; Protocol Last Admin: 01/15/18 20:50 Dose: Not Given Vital Signs - 8 hr 01/16/18 01/16/18 01/16/18 00:00 00:01 00:31 Temperature Pulse Rate 84 97 74 Respiratory 19 19 14 Rate Blood Pressure 93/64 139/57 (mmHg) O2 Sat by Pulse 95 96 98 Oximetry 01/16/18 01/16/18 01/16/18 01:00 01:01 01:27 Temperature Pulse Rate 76 74 82 Respiratory 15 17 20 Rate Blood Pressure 127/67 (mmHg) O2 Sat by Pulse 98 98 98 Oximetry 01/16/18 01/16/18 01/16/18 01:30 02:00 02:30 Temperature Pulse Rate 81 76 89 Respiratory 18 17 21 Rate Blood Pressure 117/64 120/48 125/62 (mmHg) O2 Sat by Pulse 100 96 99 Oximetry 01/16/18 01/16/18 01/16/18 02:59 03:00 03:01 Temperature Pulse Rate 85 92 Respiratory 28 33 21 Rate Blood Pressure 110/68 (mmHg) O2 Sat by Pulse 100 93 Oximetry 01/16/18 01/16/18 01/16/18 03:31 03:56 04:00 Temperature 98.0 F Pulse Rate 87 95 Respiratory 25 25 Rate Blood Pressure 97/62 (mmHg) O2 Sat by Pulse 96 96 Oximetry 01/16/18 01/16/18 01/16/18 04:11 04:16 04:29 Temperature Pulse Rate 92 94 Respiratory 24 27 24 Rate Blood Pressure 79/60 90/63 (mmHg) O2 Sat by Pulse 97 96 Oximetry 01/16/18 01/16/18 01/16/18 05:00 05:06 06:00 Temperature Pulse Rate 85 89 94 Respiratory 21 27 29 Rate Blood Pressure 128/63 147/119 (mmHg) O2 Sat by Pulse 96 97 94 Oximetry 01/16/18 07:28 Temperature 97.7 F Pulse Rate Respiratory Rate Blood Pressure (mmHg) O2 Sat by Pulse Oximetry Oxygen Devices in Use Now: Nasal Cannula Appearance: Sleeping but arounsed with verbal stimuli. Head partly up in ICU bed. Looks comfortable. Eyes: No Scleral Icterus Respiratory: Symmetrical Chest Expansion and Respiratory Effort, Clear to Auscultation, Clear to Percussion, Clear to Palpation, - Cardiovascular: NL Sounds; No Murmurs; No JVD, RRR, No Edema, - Skin: No Rash or Ulcers, No Nodules or Sclerosis, - Neurological: NL Sensation - Able to state her full name. Speech clear and fluent. No tremor. Result Diagrams: 01/16/18 05:32 01/16/18 05:32 Microbiology and Other Data: Microbiology 01/13/18 15:56 Aerobic Blood Culture - Final Blood Venous Not Reportable Anaerobic Blood Culture - Final Not Reportable 01/13/18 17:30 Nasal Screen MRSA (PCR) - Final Nasal Mrsa Not Detected Assess/Plan/Problems-Billing Ms Drummond is an 87 yo F who had a fall backwards at home, called for help but refused to come to the ER, placed in a chair and then when check on about 12hr later was found unresponsive on the floor and ultimately found to be toxic from an unintentional acetaminophen overdose, with now concerns for GI bleed, and 3rd degree heart block. She was also found to have bilateral distal radius fractures. - Patient Problems (1) Sepsis Current Visit: Yes Status: Acute Comment: On admission pt with concern for sepsis as cause of being found down though no source of infection has yet to be identified. She briefly required pressors though likely related to being dehydrated. D/C pip/josé miguel 01/16 as blood C&S neg, no further signs of sepsis. (2) Acetaminophen overdose Current Visit: Yes Status: Acute Code(s): T39.1X1A - POISONING BY 4- AMINOPHENOL DERIVATIVES, ACCIDENTAL, INIT SNOMED Code(s): 920779445 Comment: Pt with unintentional tylenol OD. APAP level undetectable 01/16. ALT 1631 01/16. Continue IV acetylcysteine through 01/17, repeat INR, CMP. (3) Glaucoma Current Visit: Yes Status: Acute Code(s): H40.9 - UNSPECIFIED GLAUCOMA SNOMED Code(s): 28408382 Comment: Home eyedrops ordered. (4) Macular degeneration Current Visit: Yes Status: Acute Code(s): H35.30 - UNSPECIFIED MACULAR DEGENERATION SNOMED Code(s): 162293452 Comment: Dx noted. (5) Osteoarthritis Current Visit: Yes Status: Acute Code(s): M19.90 - UNSPECIFIED OSTEOARTHRITIS, UNSPECIFIED SITE SNOMED Code(s): 180751070 Comment: Was independent with a walker until this admission. (6) Wrist fracture, bilateral Current Visit: Yes Status: Acute Code(s): S62.101A - FRACTURE OF UNSP CARPAL BONE, RIGHT WRIST, INIT FOR CLOS FX; S62.102A - FRACTURE OF UNSP CARPAL BONE, LEFT WRIST, INIT FOR CLOS FX SNOMED Code(s): 889771580 Comment: Pt with bilateral distal radius fractures. Plan for plaster splints to be placed tomorrow. Pt will likely need STR on d/c. (7) Hypokalemia Current Visit: Yes Status: Acute Code(s): E87.6 - HYPOKALEMIA SNOMED Code( s): 03952586 Comment: IV KCL 40 meq ordered 01/16. CMP 01/17. (8) GI bleed Current Visit: Yes Status: Acute Code(s): K92.2 - GASTROINTESTINAL HEMORRHAGE, UNSPECIFIED SNOMED Code(s): 65044538 Comment: Not clear if source other than tongue. Not clear if elevation BUN on 01/16 partly due to DXM. Continue pantoprazole infusion. CBC 01/17.
[2018-01-16] MEDS ORDERED: Phytonadione IV (Adult)* 10 MG in NS 0.9% 50 ML* 50 ML IV ONE (07:57)
--- NOTE | 2018-01-16 08:32 | RAD ---
HISTORY: increased work of breathing COMPARISONS: January 13, 2018 VIEWS: 1: frontal AP view of the chest at 3:37 AM FINDINGS: LINES AND TUBES: A left-sided internal jugular venous catheter is noted with the tip overlying the cavoatrial junction. CARDIOMEDIASTINAL SILHOUETTE: The cardiomediastinal silhouette is stable. PLEURA: The costophrenic angles are sharp. No pleural abnormalities are noted. LUNG PARENCHYMA: There is hyperinflation. ABDOMEN: There is a large hiatal hernia. BONES AND SOFT TISSUES: No bone or soft tissue abnormalities are noted. IMPRESSION: 1. LINES AND TUBES ABOVE. 2. LARGE HIATAL HERNIA. 3. HYPERINFLATION. R1
[2018-01-16] MEDS: CMC:Dorzolamide/Timolol OPTH (NF) 10 ML BOT BOTH EYES SCH ×2 (09:17→20:54)
[2018-01-16] MEDS: KCL 20 MEQ/100 ML IVPREMIX* 20 MEQ/100 ML BAG IV SCH ×2 (09:51→11:07)
--- NOTE | 2018-01-16 10:06 | ECHO ---
Patient: SUNNY ARECHIGA [facility] Rec#: [id number] : 1930 Date: 01/16/2018 Age: 87y Height: 173 cm / 68.1 in Weight: 87.6 kg / 193.1 lbs Sex: F BSA: 2.02 Room#: [facility] Admit Date#: 01/13/2018 Type: Inpatient Referring: Court Pemberton DO Reading: Wei Thomas MD Patent Legal Assistant: Sammi Sandoval RDCS CC: Jesus Valle Transthoracic Echocardiogram Indication: Complete heart block BP: 147/119 HR: 85 Rhythm: Heart Block Findings History: Obesity, smoker, hiatal hernia. Technical Comments: The study quality is good. Completed at 0900. Left Ventricle: The left ventricular chamber size is normal. Mild concentric left ventricular hypertrophy is observed. There is mild to moderately decreased left ventricular systolic function. The estimated ejection fraction is 35-40%. There is septal flattening of the interventricular septum consistent with right ventricular volume or pressure overload. There is a left ventricular septal wall motion abnormality observed, possibly due to the presence of a left bundle branch block. Abnormal left ventricular diastolic function is observed. Abnormal left ventricular diastolic filling is observed, consistent with impaired relaxation. Left Atrium: The left atrium is mildly dilated. Right Ventricle: Moderator Band present. The right ventricle is moderately dilated. The right ventricular global systolic function is mildly reduced. Right Atrium: The right atrium is moderately dilated. Aortic Valve: The aortic valve is trileaflet. The aortic valve leaflets are mildly thickened. There is no evidence of aortic regurgitation. There is no evidence of aortic stenosis. Mitral Valve: There is mitral annular calcification. The mitral valve leaflets are mildly thickened. There is trace to mild mitral regurgitation. There is no evidence of mitral stenosis. Tricuspid Valve: The tricuspid valve leaflets are normal. There is no evidence of tricuspid valve regurgitation. Unable to estimate the right ventricular systolic pressure. Pulmonic Valve: There is a trace pulmonic regurgitation. There is no pulmonic stenosis. Pericardium: There is no significant pericardial effusion. A pericardial fat pad is visualized. A left pleural effusion is present. There is a moderate pleural effusion. Aorta: There is no dilatation of the ascending aorta. The aortic arch is not well visualized. The aortic root is normal in size. Pulmonary Artery: The main pulmonary artery appears normal. Venous: The inferior vena cava appears normal in size. There is a greater than 50% respiratory change in the inferior vena cava dimension. Summary: There was not any prior study for comparison. Conclusions Mild concentric left ventricular hypertrophy is observed. There is mild to moderately decreased left ventricular systolic function. The estimated ejection fraction is 35-40%. There is septal flattening of the interventricular septum consistent with right ventricular volume or pressure overload. There is a left ventricular septal wall motion abnormality observed, possibly due to the presence of a left bundle branch block. The right ventricular global systolic function is mildly reduced. There is no evidence of aortic stenosis. There is trace to mild mitral regurgitation. There is no evidence of tricuspid valve regurgitation. Unable to estimate the right ventricular systolic pressure. There is no significant pericardial effusion. A left pleural effusion is present. There is a moderate pleural effusion. Measurements Name Value Normal Range RVIDd (AP) 2D 2.4 cm (0.9 - 2.6) RVDdMajor (2D) 5 cm (2.2 - 4.4) RAd ISD 4CH 5.8 cm (3.4 - 4.9) RA (A4C)W 4.2 cm (2.9 - 4.6) IVSd (2D) 1.2 cm (0.6 - 1) LVPWd (2D) 1.2 cm (0.6 - 1) LVIDd (2D) 4.5 cm (3.6 - 5.4) LVIDs (2D) 3.7 cm - LV FS (2D) 18 % (25 - 45) Aortic Annulus 2 cm (1.4 - 2.6) Ao root diameter (2D) 2.9 cm (2.1 - 3.5) Ascending Ao 3.4 cm (2.1 - 3.4) LA dimension (AP) 2D 2 cm (2.3 - 3.8) LAd ISD 4CH 5.3 cm (2.9 - 5.3) LA ISD 4CH W 5.8 cm (2.5 - 4.5) Name Value Normal Range LA ESV BP (A/L) index 37 ml/m2 - Name Value Normal Range MV E-wave Vmax 1.4 m/sec - MV deceleration time 240 msec - MV A-wave Vmax 0.8 m/sec - MV E:A ratio 1.75 ratio - LV septal e' Vmax 0.05 m/sec - LV lateral e' Vmax 0.07 m/sec - LV E:e' septal ratio 28 ratio - LV E:e' lateral ratio 20 ratio - Name Value Normal Range AV Vmax 1.6 m/sec - AV VTI 24.5 cm - AV peak gradient 10 mmHg - AV mean gradient 5 mmHg - LVOT Vmax 1 m/sec - LVOT VTI 14.6 cm - LVOT peak gradient 4 mmHg - LVOT mean gradient 2 mmHg - Name Value Normal Range TR Vmax 3.1 m/sec - TR peak gradient 38 mmHg - RAP 3 mmHg - RVSP 41 mmHg - IVC diameter 1.5 cm - Name Value Normal Range PV Vmax 1.4 m/sec - PV peak gradient 8 mmHg -
--- NOTE | 2018-01-16 13:27 | PN ---
Progress Note - Progress Note Date of Service: 01/16/18 SOAP: Subjective: [] Patient seen and examined at bedside today. She is alert and able to carry on conversation today. Reports soreness of left wrist, no other pain. Denies any sensation of numbness or tingling. Objective: []General: NAD, carrying on appropriate conversation when not falling asleep RUE: Skin intact with purple bruising of hand and forearm. Warm and compressible upper arm, forearm, hand, digits. Elbow with no discomfort to palpation, nonpainful PROM 0-120. Wrist with tenderness to palpation, F/E intact though limited by pain. F/E all 5 digits intact. Thumbs up and okay sign intact. Sensation intact to light touch throughout RUE. Capillary refill less than two seconds distally. Radial pulse 2+. LUE: Skin intact with purple bruising of hand and forearm. Warm and compressible upper arm, forearm, hand, digits. Wrist F/E intact though limited by pain. F/E all 5 digits intact. Thumbs up and okay sign intact. Sensation intact to light touch throughout RUE. Capillary refill less than two seconds distally. Radial pulse 2+ Assessment: []R elbow - Chronic appearing Monteggia fx/dislocation B/L wrists: Distal radius fracture Plan: [] Splints placed: LUE Volar, dorsal slabs and RUE sugartong splint. NWB Bilateral upper extremities. Wiggle exposed digits. Follow up with one of our hand specialists at discharge: Dr Elizabeth or Dr Maria Diagnostic Studies: Right Elbow Xray TECHNIQUE: 3 views of the right elbow were obtained. FINDINGS: There is lateral and posterior dislocation of the radial head relative to the distal humerus. This may be a chronic finding. There is a chronic ununited fracture of the proximal diaphysis of the ulna. The fracture fragments are displaced and angulated. IMPRESSION: 1. DISLOCATION OF THE RADIAL HEAD. 2. CHRONIC DISPLACED AND ANGULATED UNUNITED FRACTURE OF THE PROXIMAL ULNA. Bilateral Wrist Xrays TECHNIQUE: 2 views of both wrists were obtained. FINDINGS: There is bilateral diffuse soft tissue swelling. There is a transverse impacted fracture of the right radial metaphysis. There is also suggestion of a nondisplaced fracture of the distal right ulna. The fractures are likely acute to subacute in duration. There is a transverse impacted fracture of the distal left radius. There is a transverse impacted fracture of the distal left ulna. The fractures appear subacute in duration. IMPRESSION: 1. TRANSVERSE IMPACTED FRACTURE OF THE DISTAL RIGHT RADIUS. 2. PROBABLE NONDISPLACED FRACTURE OF THE DISTAL RIGHT ULNA. 3. TRANSVERSE IMPACTED FRACTURE OF THE DISTAL LEFT RADIUS. 4. TRANSVERSE IMPACTED FRACTURE OF THE DISTAL LEFT ULNA. 1 of 1
[2018-01-16] MEDS: PTO:Travoprost Z 0.004% OPHTH (NF) 2.5 ML BTL BOTH EYES SCH (20:54)
--- NOTE | 2018-01-16 21:33 | CONS ---
CARDIOLOGY CONSULTATION: DATE OF CONSULT: 01/16/18 INDICATION FOR CONSULT: Bradycardia, atrial arrhythmias. HISTORY OF PRESENT ILLNESS: The patient is an 87-year-old female with little past medical history, who was living at home when she had a fall at home spraining her wrist. The patient was seen on Tuesday of last week and not seen again until Tuesday, when the cleaning person came and found her unresponsive on the ground. Apparently, the patient was taking Tylenol for the pain in her wrist and had a Tylenol overdose. On arrival, the patient was obtunded. Her liver functions and INR were exceedingly high. The patient was admitted to the hospital. She did undergo surgery for her wrist fractures. The patient was being monitored upstairs. While she was upstairs, the patient had normal sinus rhythm with left bundle branch block with occasional episodes of tachycardia. Last night, the patient had an episode of significant bradycardia, thought secondary to third-degree heart block and she was transferred to the intensive care unit. I personally reviewed the telemetry strips. The patient has what I believe to be wandering atrial pacemaker with the left bundle branch block, she occasionally had non-conducted P waves that could be due to secondary heart block. I see no evidence of third-degree heart block. Her second-degree heart block would be type 2. The patient herself denies any syncopal episodes. She denies any chest pain. She does have mild shortness of breath from being in bed for so many days. PAST MEDICAL HISTORY: Significant for hiatal hernia. PAST SURGICAL HISTORY: Hysterectomy in the past. MEDICATIONS: Outpatient medications are only multiple eye drops. ALLERGIES: No known drug allergies. FAMILY HISTORY: Not obtained. SOCIAL HISTORY: She lives alone. She denies tobacco or alcohol use. She is retired. REVIEW OF SYSTEMS: Difficulty to obtain as the patient was still very lethargic and tired at the time of my interview. PHYSICAL EXAM: Height is 5 feet 8 inches, weight is 200 pounds, temperature 97 , heart rate is 85, respiratory rate 20, blood pressure 144/87, oxygen saturation 95% on 2 L. Sclerae anicteric. Oropharynx is pink without erythema. Carotids are 2+ without bruits. JVD is normal. Thyroid is normal. Cardiac Exam : Distant heart sounds, S1, S2 with any murmurs, rubs, or gallops. PMI is normal. Lungs are clear anteriorly. The patient was unable to sit forward to auscultate posteriorly. Abdomen is soft, nontender, nondistended with normoactive bowel sounds. Extremities show 1+ edema. The patient has 2+ pulses. The patient was unable to ambulate or move extremities purposefully. She was again lethargic. DIAGNOSTIC STUDIES/LAB DATA: White count 10, hemoglobin 10, hematocrit 30, platelet count 103. Chemistries: Potassium 3.1, BUN 37, creatinine 1.1. AST and ALT are 768 and 1631. TSH was normal at 0.92. The patient had an echocardiogram today, which demonstrated moderately reduced LV systolic function, ejection fraction of 35% to 40%. Septal asynchrony secondary to left bundle branch block. No significant valvular abnormalities. She did have a left pleural effusion noted. IMPRESSION AND PLAN: This is an 87-year-old female with very little past medical history, who was admitted to the hospital after having a fall at home and having an inadvertent Tylenol overdose. The patient was noted to have sinus tachycardia with a left bundle branch block on admission. Yesterday, the patient had episodes of bradycardia and heart block, probably second-degree heart block, type 2. For now, my recommendation is continue to observe the patient. At this point, I do not think any intervention is necessary. I did talk to the patient about possibly having a pacemaker implantation. She was somewhat noncommittal at the time. The patient, again, still is somewhat lethargic. For now, I will continue to follow the patient. When she is feeling stronger and able to have a longer discussion, we may consider pacemaker implantation. [id number]/[facility] #: [id number] [facility]DREN'S HOSPITALSharyn
[2018-01-17] MEDS: D5W IVPB SCH ×4 (01:23→10:48)
[2018-01-17] MEDS: ACETYLCYSTEINE IVPB SCH ×4 (01:23→10:48)
[2018-01-17] MEDS: Pantoprazole IV* 80 MG in NS 0.9% 250 ML* 250 ML IVPB SCH (01:52)
--- NOTE | 2018-01-17 02:56 | PN ---
Progress Note - Progress Note Date of Service: 01/17/18 Note: Paged for 6 second pause - occurred while patient was burping. Asymptomatic. Follow up with day team regarding candidate for pacemaker if she is agreeable
[2018-01-17] MEDS: Morphine VIAL* 4 MG/ML VIAL (1 ml vial) IV PRN ×3 (04:31→16:07)
[2018-01-17 05:11] LABS: INR 1.02 (0.77-1.02)
[2018-01-17 05:14] LABS: ABS Basophils 0 10^3/ul (0-0.2); ABS Eosinophils 0 10^3/ul (0-0.6); ABS Lymphocytes 0.3 10^3/ul (1.0-4.8); ABS Monocytes 0.1 10^3/ul (0-0.8); ABS Neutrophils 7.1 10^3/ul (1.5-7.7); ABS Nucleated RBC 0 10^3/ul; Eosinophil % 0 % (0-6); Hematocrit 29 % (35-47); Hemoglobin 9.8 g/dl (12.0-16.0); Lymphocyte % 4.4 % (25-47); Mean Corpuscular HGB Conc 34 g/dl (31-36); Mean Corpuscular Hemoglobin 30 pg (27-31); Mean Corpuscular Volume 90 fL (80-97); Mean Platelet Volume 9.8 um3 (7.4-10.4); Nucleated Red Blood Cells % 0; Platelet Count 98 10^3/ul (150-450); Red Blood Count 3.23 10^6/ul (4.00-5.40); Red Cell Distribution Width 14 % (10.5-15); White Blood Count 7.6 10^3/ul (3.5-10.8)
[2018-01-17 05:23] LABS: EGFR Non-African American 91.3 (>60)
[2018-01-17] MEDS: Insulin LISPRO* 1 UNITS UNIT SUBCUT SCH ×4 (06:11→23:19)
[2018-01-17] MEDS ORDERED: HYDROcodone/ACET. 7.5/325 LIQ* 15 ML UDC PO PRN (07:27)
--- NOTE | 2018-01-17 07:30 | PN ---
Subjective Date of Service: 01/17/18 Interval History: When asked if anything hurts. replied "everything hurts." Family History: Findings - Father of heart disease. Social History: Findings - Lives alone. No alcohol abuse. Smoked in 07/2012, ? recently. SDM is her friend Jerad Mclean [phone]. Past Medical History: Findings - Cholecystectomy, KATE-BSO. No children. Glaucoma, macular degeneration, OA. Objective Active Medications: Dextrose (D50w Syringe 50 Ml*) 12.5 gm IV PUSH .FOR FS < 60 - SS PRN PRN Reason: FS < 60 Dorzolamide/Timolol (Cosopt (Nf)) 1 drop BOTH EYES BID LETI; Protocol Last Admin: 01/16/18 20:54 Dose: Not Given Guaifenesin/Codeine Phosphate (Robitussin Ac 100mg-10mg*) 5 ml PO Q4H PRN PRN Reason: COUGH Last Admin: 01/16/18 04:14 Dose: 5 ml Pantoprazole Sodium 80 mg/ (Sodium Chloride) 250 mls @ 25 mls/hr IVPB Q10H LETI Last Admin: 01/17/18 01:52 Dose: 25 mls/hr Acetylcysteine 4,818 mg/ (Dextrose) 524.09 mls @ 131.023 mls/hr IVPB Q4H LETI; Protocol Last Admin: 01/17/18 05:44 Dose: 131 mls/hr Potassium Chloride (Potassium Chloride 20 Meq/100 Ml Ivpremix*) 20 meq in 100 mls @ 50 mls/hr IV Q2H LETI Stop: 01/17/18 13:59 Insulin Human Lispro (Humalog*) 0 units SUBCUT Q6HR LETI; Protocol Last Admin: 01/17/18 06:11 Dose: 2 unit Morphine Sulfate (Morphine Vial*) 2 mg IV Q4H PRN PRN Reason: PAIN Last Admin: 01/17/18 04:31 Dose: 2 mg Ondansetron HCl (Zofran Inj*) 4 mg IV Q4H PRN PRN Reason: n/v Last Admin: 01/14/18 22:36 Dose: 4 mg Travoprost (Travatan Z 0.004% Opth (Nf)) 1 drop BOTH EYES BEDTIME LETI; Protocol Last Admin: 01/16/18 20:54 Dose: Not Given Vital Signs - 8 hr 01/16/18 01/17/18 01/17/18 23:49 00:00 00:07 Temperature 97.3 F Pulse Rate 74 77 Respiratory 21 15 22 Rate Blood Pressure 174/81 (mmHg) O2 Sat by Pulse 97 98 Oximetry 01/17/18 01/17/18 01/17/18 01:00 01:01 01:38 Temperature Pulse Rate 73 71 87 Respiratory 33 23 28 Rate Blood Pressure 151/114 171/93 (mmHg) O2 Sat by Pulse 93 93 94 Oximetry 01/17/18 01/17/18 01/17/18 01:39 02:00 02:01 Temperature Pulse Rate 78 73 90 Respiratory 16 18 15 Rate Blood Pressure 175/101 (mmHg) O2 Sat by Pulse 97 93 93 Oximetry 01/17/18 01/17/18 01/17/18 03:00 03:01 03:58 Temperature Pulse Rate 86 66 Respiratory 15 15 20 Rate Blood Pressure 125/78 (mmHg) O2 Sat by Pulse 95 100 Oximetry 01/17/18 01/17/18 01/17/18 04:00 04:04 04:20 Temperature 97.1 F Pulse Rate 87 Respiratory 18 24 Rate Blood Pressure 159/103 (mmHg) O2 Sat by Pulse 99 Oximetry 01/17/18 01/17/18 01/17/18 04:31 05:00 05:01 Temperature Pulse Rate 82 90 Respiratory 18 15 15 Rate Blood Pressure 149/89 (mmHg) O2 Sat by Pulse 100 98 Oximetry 01/17/18 06:00 Temperature Pulse Rate 80 Respiratory 29 Rate Blood Pressure 116/81 (mmHg) O2 Sat by Pulse 97 Oximetry Oxygen Devices in Use Now: Nasal Cannula Appearance: Alert, partly up in ICU bed. In fair spirits. Looks comfortable at rest. Eyes: No Scleral Icterus Respiratory: Symmetrical Chest Expansion and Respiratory Effort, Clear to Auscultation, Clear to Percussion Cardiovascular: NL Sounds; No Murmurs; No JVD, RRR, No Edema, - Extremities: No Edema, No Clubbing, Cyanosis, - Skin: No Rash or Ulcers, No Nodules or Sclerosis, - Neurological: Alert and Oriented x 3, NL Sensation - very weak Result Diagrams: 01/17/18 04:42 01/17/18 04:42 Microbiology and Other Data: Microbiology 01/13/18 15:56 Aerobic Blood Culture - Final Blood Venous Not Reportable Anaerobic Blood Culture - Final Not Reportable 01/13/18 17:30 Nasal Screen MRSA (PCR) - Final Nasal Mrsa Not Detected Assess/Plan/Problems-Billing Ms Drummond is an 87 yo F who had a fall backwards at home, called for help but refused to come to the ER, placed in a chair and then when check on about 12hr later was found unresponsive on the floor and ultimately found to be toxic from an unintentional acetaminophen overdose, with now concerns for GI bleed, and 3rd degree heart block. She was also found to have bilateral distal radius fractures. - Patient Problems (1) Sepsis Current Visit: Yes Status: Acute Comment: On admission pt with concern for sepsis as cause of being found down though no source of infection has yet to be identified. She briefly required pressors though likely related to being dehydrated. D/C pip/josé miguel 01/16 as blood C&S neg, no further signs of sepsis. (2) Acetaminophen overdose Current Visit: Yes Status: Acute Code(s): T39.1X1A - POISONING BY 4- AMINOPHENOL DERIVATIVES, ACCIDENTAL, INIT SNOMED Code(s): 193694206 Comment: Pt with unintentional tylenol OD. APAP level undetectable 01/16. ALT fell on 01/17, will stop IV acetylcysteine when ALT <1000. (3) Glaucoma Current Visit: Yes Status: Acute Code(s): H40.9 - UNSPECIFIED GLAUCOMA SNOMED Code(s): 82925978 Comment: Home eyedrops ordered. (4) Macular degeneration Current Visit: Yes Status: Acute Code(s): H35.30 - UNSPECIFIED MACULAR DEGENERATION SNOMED Code(s): 356002265 Comment: Dx noted. (5) Osteoarthritis Current Visit: Yes Status: Acute Code(s): M19.90 - UNSPECIFIED OSTEOARTHRITIS, UNSPECIFIED SITE SNOMED Code(s): 986134778 Comment: Was independent with a walker until this admission. (6) Wrist fracture, bilateral Current Visit: Yes Status: Acute Code(s): S62.101A - FRACTURE OF UNSP CARPAL BONE, RIGHT WRIST, INIT FOR CLOS FX; S62.102A - FRACTURE OF UNSP CARPAL BONE, LEFT WRIST, INIT FOR CLOS FX SNOMED Code(s): 837649454 Comment: Pt with bilateral distal radius fractures. Plan for plaster splints to be placed tomorrow. Pt will likely need STR on d/c. (7) Hypokalemia Current Visit: Yes Status: Acute Code(s): E87.6 - HYPOKALEMIA SNOMED Code( s): 05775167 Comment: IV KCL 60 meq ordered 01/17. CMP 01/17 4 PM. (8) GI bleed Current Visit: Yes Status: Acute Code(s): K92.2 - GASTROINTESTINAL HEMORRHAGE, UNSPECIFIED SNOMED Code(s): 73167786 Comment: Not clear if source other than tongue. Change to pantoprazole 40 mg IV q 12 h 01/17. CBC 01/18. 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 Dr. Thomas's consultation appreciated.
[2018-01-17] MEDS: KCL 20 MEQ/100 ML IVPREMIX* 20 MEQ/100 ML BAG IV SCH ×3 (07:44→10:11)
[2018-01-17] MEDS: Pantoprazole IV* 40 MG IV SCH ×2 (08:55→20:04)
[2018-01-17] MEDS: Ondansetron INJ* 2 MG/ML VIAL IV PRN (09:08)
[2018-01-17] MEDS: CMC:Dorzolamide/Timolol OPTH (NF) 10 ML BOT BOTH EYES SCH ×2 (11:24→20:05)
--- NOTE | 2018-01-17 12:24 | PN ---
Progress Note - Progress Note Date of Service: 01/17/18 SOAP: Subjective: Patient seen and examined at bedside today. She is alert and able to carry on conversation today. Reports that the right wrist is more painful than the left at this point, no other pain. Denies any sensation of numbness or tingling. Objective: []General: NAD, carrying on appropriate conversation RUE: Dressing is c/d/i .Skin of fingers intact with purple bruising. Thumbs up and okay sign intact. Sensation intact to light touch throughout RUE. Capillary refill less than two seconds distally. LUE: Dressing is c/d/i. Skin intact with purple bruising of fingers. Thumbs up and okay sign intact. Sensation intact to light touch throughout LUE. Capillary refill less than two seconds distally. Assessment: R elbow - Chronic appearing Monteggia fx/dislocation B/L wrists: Distal radius fracture Plan: Splints in place: LUE Volar, dorsal slabs and RUE sugartong splint. NWB Bilateral upper extremities. Wiggle exposed digits. Follow up with Dr. Elizabeth once discharged
[2018-01-17] MEDS ORDERED: KCL 20 MEQ/100 ML IVPREMIX* 20 MEQ/100 ML BAG IV ONE (15:00)
[2018-01-17] MEDS: PTO:Travoprost Z 0.004% OPHTH (NF) 2.5 ML BTL BOTH EYES SCH (20:04)
[2018-01-18] MEDS: Morphine VIAL* 4 MG/ML VIAL (1 ml vial) IV PRN ×2 (04:26→20:40)
[2018-01-18] MEDS: Insulin LISPRO* 1 UNITS UNIT SUBCUT SCH ×3 (05:40→18:20)
[2018-01-18 05:57] LABS: ABS Basophils 0 10^3/ul (0-0.2); ABS Eosinophils 0 10^3/ul (0-0.6); ABS Lymphocytes 0.4 10^3/ul (1.0-4.8); ABS Monocytes 0.2 10^3/ul (0-0.8); ABS Neutrophils 5.2 10^3/ul (1.5-7.7); ABS Nucleated RBC 0 10^3/ul; Eosinophil % 0 % (0-6); Hematocrit 26 % (35-47); Hemoglobin 8.9 g/dl (12.0-16.0); Lymphocyte % 6.6 % (25-47); Mean Corpuscular HGB Conc 34 g/dl (31-36); Mean Corpuscular Hemoglobin 31 pg (27-31); Mean Corpuscular Volume 90 fL (80-97); Mean Platelet Volume 9.7 um3 (7.4-10.4); Nucleated Red Blood Cells % 0.1; Platelet Count 84 10^3/ul (150-450); Red Blood Count 2.91 10^6/ul (4.00-5.40); Red Cell Distribution Width 15 % (10.5-15); White Blood Count 5.8 10^3/ul (3.5-10.8)
[2018-01-18 06:43] LABS: EGFR Non-African American 109.4 (>60)
--- NOTE | 2018-01-18 07:49 | PN ---
Subjective Date of Service: 01/18/18 Interval History: The patient could not say what hurt the most. No new c/o. Family History: Findings - Father of heart disease. Social History: Findings - Lives alone. No alcohol abuse. Smoked in 07/2012, ? recently. SDM is her friend Jerad Mclean [phone]. Past Medical History: Findings - Cholecystectomy, KATE-BSO. No children. Glaucoma, macular degeneration, OA. Objective Active Medications: Hydrocodone Bitart/Acetaminophen (Nortab 7.5/325 Liq*) 5 ml PO Q4H PRN PRN Reason: PAIN Dextrose (D50w Syringe 50 Ml*) 12.5 gm IV PUSH .FOR FS < 60 - SS PRN PRN Reason: FS < 60 Dorzolamide/Timolol (Cosopt (Nf)) 1 drop BOTH EYES BID LETI; Protocol Last Admin: 01/17/18 20:05 Dose: 1 drop Guaifenesin/Codeine Phosphate (Robitussin Ac 100mg-10mg*) 5 ml PO Q4H PRN PRN Reason: COUGH Last Admin: 01/16/18 04:14 Dose: 5 ml Insulin Human Lispro (Humalog*) 0 units SUBCUT Q6HR LETI; Protocol Last Admin: 01/18/18 05:40 Dose: Not Given Morphine Sulfate (Morphine Vial*) 1 mg IV Q4H PRN PRN Reason: PAIN Last Admin: 01/18/18 04:26 Dose: 1 mg Ondansetron HCl (Zofran Inj*) 4 mg IV Q4H PRN PRN Reason: n/v Last Admin: 01/17/18 09:08 Dose: 4 mg Pantoprazole Sodium (Protonix Iv*) 40 mg IV Q12H LETI Last Admin: 01/17/18 20:04 Dose: 40 mg Potassium Chloride (Klor Con Er Tab*) 10 meq PO DAILY LETI Travoprost (Travatan Z 0.004% Opth (Nf)) 1 drop BOTH EYES BEDTIME LETI; Protocol Last Admin: 01/17/18 20:04 Dose: 1 drop Vital Signs - 8 hr 01/17/18 01/18/18 01/18/18 23:44 00:00 00:01 Temperature 97.8 F Pulse Rate 80 86 Respiratory 24 28 Rate Blood Pressure 116/73 (mmHg) O2 Sat by Pulse 98 96 Oximetry 01/18/18 01/18/18 01/18/18 01:00 02:00 03:00 Temperature Pulse Rate 88 79 79 Respiratory 16 13 24 Rate Blood Pressure 118/75 145/75 160/85 (mmHg) O2 Sat by Pulse 98 97 96 Oximetry 01/18/18 01/18/18 01/18/18 03:28 04:00 04:12 Temperature 97.5 F Pulse Rate 87 88 Respiratory 15 20 Rate Blood Pressure 177/81 148/76 (mmHg) O2 Sat by Pulse 95 96 Oximetry 01/18/18 01/18/18 01/18/18 04:26 05:00 05:01 Temperature Pulse Rate 75 76 Respiratory 20 17 23 Rate Blood Pressure 151/66 (mmHg) O2 Sat by Pulse 98 98 Oximetry 01/18/18 01/18/18 01/18/18 06:00 06:01 07:00 Temperature Pulse Rate 88 89 84 Respiratory 18 19 10 Rate Blood Pressure 107/83 (mmHg) O2 Sat by Pulse 96 95 96 Oximetry Oxygen Devices in Use Now: Nasal Cannula Appearance: Alert, partly up on ICU bed. Passive but responds appropriately. Looks comfortable at rest. Eyes: No Scleral Icterus Extremities: No Edema, No Clubbing, Cyanosis, - - Both wrists in splints Skin: No Rash or Ulcers, No Nodules or Sclerosis, - Neurological: Alert and Oriented x 3, NL Sensation Result Diagrams: 01/18/18 05:30 01/18/18 05:30 Microbiology and Other Data: Microbiology 01/13/18 15:56 Aerobic Blood Culture - Final Blood Venous Not Reportable Anaerobic Blood Culture - Final Not Reportable 01/13/18 17:30 Nasal Screen MRSA (PCR) - Final Nasal Mrsa Not Detected Assess/Plan/Problems-Billing Ms Drummond is an 87 yo F who had a fall backwards at home, called for help but refused to come to the ER, placed in a chair and then when check on about 12hr later was found unresponsive on the floor and ultimately found to be toxic from an unintentional acetaminophen overdose, with now concerns for GI bleed, and 3rd degree heart block. She was also found to have bilateral distal radius fractures. - Patient Problems (1) Sepsis Current Visit: Yes Status: Acute Comment: On admission pt with concern for sepsis as rectal temp was 93. Cause of being found down though could have been sepsis or bradycardia. No source of infection has yet to be identified. She briefly required pressors though likely related to being dehydrated. D/C'd pip/ josé miguel 01/16 as blood C&S neg, no further signs of sepsis. (2) Acetaminophen overdose Current Visit: Yes Status: Acute Code(s): T39.1X1A - POISONING BY 4- AMINOPHENOL DERIVATIVES, ACCIDENTAL, INIT SNOMED Code(s): 455343667 Comment: Pt with unintentional tylenol OD. APAP level undetectable 01/16. AST and ALT both falling. Acetylcysteine stopped 01/17. INR improved following vitamin K administration. CMP 01/19. (3) Glaucoma Current Visit: Yes Status: Acute Code(s): H40.9 - UNSPECIFIED GLAUCOMA SNOMED Code(s): 03412629 Comment: Home eyedrops ordered. (4) Macular degeneration Current Visit: Yes Status: Acute Code(s): H35.30 - UNSPECIFIED MACULAR DEGENERATION SNOMED Code(s): 206727654 Comment: Dx noted. (5) Osteoarthritis Current Visit: Yes Status: Acute Code(s): M19.90 - UNSPECIFIED OSTEOARTHRITIS, UNSPECIFIED SITE SNOMED Code(s): 214375312 Comment: Was independent with a walker until this admission. (6) Wrist fracture, bilateral Current Visit: Yes Status: Acute Code(s): S62.101A - FRACTURE OF UNSP CARPAL BONE, RIGHT WRIST, INIT FOR CLOS FX; S62.102A - FRACTURE OF UNSP CARPAL BONE, LEFT WRIST, INIT FOR CLOS FX SNOMED Code(s): 099390462 Comment: Pt with bilateral distal radius fractures. Plan for plaster splints to be placed tomorrow. Pt will likely need STR on d/c. (7) Hypokalemia Current Visit: Yes Status: Acute Code(s): E87.6 - HYPOKALEMIA SNOMED Code( s): 38124805 Comment: KCL liquis 20 meq daily start 01/18. CMP 01/19. (8) GI bleed Current Visit: Yes Status: Acute Code(s): K92.2 - GASTROINTESTINAL HEMORRHAGE, UNSPECIFIED SNOMED Code(s): 93291418 Comment: Not clear if source other than tongue. Change to pantoprazole 40 mg IV q 12 h 01/17. CBC 01/19. Vitamin K 5 mg po q 72 hr ordered. 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 Dr. Thomas's consultation appreciated. Patient refused pacemaker again 01/18, did not give a reason but does not appear likely to change her mind soon. Transfer to .
[2018-01-18] MEDS: Pantoprazole IV* 40 MG IV SCH ×2 (08:29→20:24)
[2018-01-18] MEDS: Multivitamins ADULT w/MIN LIQ* 15 ML UDC PO SCH (08:29)
[2018-01-18] MEDS: Potassium Chloride LIQUID* 20 MEQ PACKET PO SCH (08:29)
[2018-01-18] MEDS: CMC:Dorzolamide/Timolol OPTH (NF) 10 ML BOT BOTH EYES SCH ×2 (08:31→20:24)
--- NOTE | 2018-01-18 08:42 | PN ---
Subjective Date of Service: 01/18/18 - CC: bradycardia, probable fall hx Interval History: Pt sleepy, not able to give a good history. Medications Active Medications: Hydrocodone Bitart/Acetaminophen (Nortab 7.5/325 Liq*) 5 ml PO Q4H PRN PRN Reason: PAIN Dextrose (D50w Syringe 50 Ml*) 12.5 gm IV PUSH .FOR FS < 60 - SS PRN PRN Reason: FS < 60 Dorzolamide/Timolol (Cosopt (Nf)) 1 drop BOTH EYES BID LETI; Protocol Last Admin: 01/18/18 08:31 Dose: 1 drop Guaifenesin/Codeine Phosphate (Robitussin Ac 100mg-10mg*) 5 ml PO Q4H PRN PRN Reason: COUGH Last Admin: 01/16/18 04:14 Dose: 5 ml Insulin Human Lispro (Humalog*) 0 units SUBCUT Q6HR LETI; Protocol Last Admin: 01/18/18 05:40 Dose: Not Given Morphine Sulfate (Morphine Vial*) 1 mg IV Q4H PRN PRN Reason: PAIN Last Admin: 01/18/18 04:26 Dose: 1 mg Multivitamins (Theragran W/Minerals Liq*) 15 ml PO DAILY LETI Last Admin: 01/18/18 08:29 Dose: 15 ml Ondansetron HCl (Zofran Inj*) 4 mg IV Q4H PRN PRN Reason: n/v Last Admin: 01/17/18 09:08 Dose: 4 mg Pantoprazole Sodium (Protonix Iv*) 40 mg IV Q12H LETI Last Admin: 01/18/18 08:29 Dose: 40 mg Phytonadione (Vitamin K Oral Solution*) 5 mg PO Q72H LETI Potassium Chloride (Klor-Con Liquid*) 20 meq PO DAILY LETI Last Admin: 01/18/18 08:29 Dose: 20 meq Travoprost (Travatan Z 0.004% Opth (Nf)) 1 drop BOTH EYES BEDTIME LETI; Protocol Last Admin: 01/17/18 20:04 Dose: 1 drop Objective Vital Signs: Temp Pulse Resp BP Pulse Ox 98.8 F 74 11 128/84 97 01/18/18 07:56 01/18/18 08:01 01/18/18 08:01 01/18/18 08:01 01/18/18 08:01 Oxygen Devices in Use Now: Nasal Cannula Appearance: elderly female, lying in bed, sleeping and difficult to wake up. Comfortable. Eyes: No Scleral Icterus, PERRLA Ears/Nose/Mouth/Throat: Mucous Membranes Moist Neck: NL Appearance and Movements; NL JVP Respiratory: Clear to Auscultation Cardiovascular: RRR Abdominal: NL Sounds; No Tenderness; No Distention Extremities: No Clubbing, Cyanosis Skin: No Rash or Ulcers Neurological: - - sleepy, hard to arouse as above. Laboratory Results: 01/18/18 05:30 01/18/18 05:30 INR (Anticoag Therapy) 1.02 (0.77-1.02) 01/17/18 04:42 Total Bilirubin 0.90 mg/dL (0.2-1.0) 01/18/18 05:30 Direct Bilirubin 0.20 mg/dL (0.03-0.18) H 01/14/18 05:44 Indirect Bilirubin 0.8 mg/dL (0.3-1.0) 01/14/18 05:44 AST 99 U/L (13-39) H 01/18/18 05:30 ALT 643 U/L (7-52) H 01/18/18 05:30 Alkaline Phosphatase 117 U/L (34-104) H 01/18/18 05:30 Total Protein 4.4 g/dL (6.4-8.9) L 01/18/18 05:30 Albumin 2.6 g/dL (3.2-5.2) L 01/18/18 05:30 Globulin 1.8 g/dL (2-4) L 01/18/18 05:30 Albumin/Globulin Ratio 1.4 (1-3) 01/18/18 05:30 TSH 0.92 mcIU/mL (0.34-5.60) 01/13/18 14:40 01/13/18 01/13/18 14:40 20:30 Troponin I 0.04 H* 0.04 H* Diagnostic Imaging: Echo 01/15/18: EF 35-40% w/LBBB, RVE and RV hypokinesis. EKG Data: 3rd degree HB on prior strips reviewed, no bradycardia overnight. Assessment/Plan 87 yo female living independently, found on the ground by dental therapist. Tylenol overdose with improving transaminases. Intermittent 3rd degree HB and LBBB with moderate decrease in CM. 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 Aware patient has declined. Health care proxy per nurses has been visiting, I will discuss with the health care proxy later today. CM: +Pleural effusion Consider adding an ACEI or ARB. (avoid beta blockers). Anemia: lower today. Defer to IM for evaluation and management. Acidemia noted. NOTE: beta kady is in opthalmic gtts, I doubt this is contributing significantly to 3rd degree block, but consideration of gtts w/o beta kady. At 2 PM I talked to the patient with Dr Green and her neighbors. I showed the patient and her neighbors her telemetry strips, explained what a normal rate was and showed her the frequent intermittent episodes of 3rd degree HB and very slow escape rhythm. I discussed that as the etiology was degenerative we do not have medication to improve this and that a pacemaker was recommended. I explained that her falls and wrist fracture could be related to the bradycardia. The patient states she does not want a pacemaker, she does not want to live. She is in too much pain. Her wrists are painful and her legs are painful. She cannot tell me if the leg pain is muscle pain or joint pain. She does not have a consumer credit counselor. Currently no pacemaker implantation is planned. The patient is aware that w/o a pacemaker she would not be expected to be able to return to independent living. The patient was informed if she has additional questions about a pacemaker there are nurses and MD's that could assist. Cardiology will follow distantly.
[2018-01-18] MEDS ORDERED: Potassium Chlor TAB* 10 MEQ TAB.ER PO SCH (09:00)
[2018-01-18] MEDS ORDERED: Phytonadione Oral Solution* 5 MG/25 ML UDC PO SCH (12:30)
[2018-01-18] MEDS: PTO:Travoprost Z 0.004% OPHTH (NF) 2.5 ML BTL BOTH EYES SCH (20:26)
[2018-01-19] MEDS: Insulin LISPRO* 1 UNITS UNIT SUBCUT SCH ×4 (00:49→19:48)
[2018-01-19 06:00] LABS: Hematocrit 24 % (35-47); Hemoglobin 8.1 g/dl (12.0-16.0); Mean Corpuscular HGB Conc 33 g/dl (31-36); Mean Corpuscular Hemoglobin 30 pg (27-31); Mean Corpuscular Volume 90 fL (80-97); Platelet Count 68 10^3/ul (150-450); Red Blood Count 2.69 10^6/ul (4.00-5.40); Red Cell Distribution Width 14 % (10.5-15); White Blood Count 4.2 10^3/ul (3.5-10.8)
[2018-01-19 06:10] LABS: ABS Basophils 0 10^3/ul (0-0.2); ABS Eosinophils 0 10^3/ul (0-0.6); ABS Lymphocytes 0.6 10^3/ul (1.0-4.8); ABS Monocytes 0.2 10^3/ul (0-0.8); ABS Neutrophils 3.5 10^3/ul (1.5-7.7); ABS Nucleated RBC 0 10^3/ul
[2018-01-19 06:33] LABS: ABS Basophils 0 10^3/ul (0-0.2); ABS Neutrophils 3.4 10^3/ul (1.5-7.7); Monocytes % 0 % (0-7)
[2018-01-19 06:58] LABS: EGFR Non-African American 119.7 (>60)
[2018-01-19] MEDS: Pantoprazole IV* 40 MG IV SCH ×2 (08:40→21:16)
[2018-01-19] MEDS: Potassium Chloride LIQUID* 20 MEQ PACKET PO SCH (08:46)
[2018-01-19] MEDS: Multivitamins ADULT w/MIN LIQ* 15 ML UDC PO SCH (08:48)
[2018-01-19] MEDS: CMC:Dorzolamide/Timolol OPTH (NF) 10 ML BOT BOTH EYES SCH ×2 (08:51→21:21)
[2018-01-19] MEDS ORDERED: Albuterol/Ipratropium NEB.SOL* Albuterol 2.5 MG/Ipratropium 0.5 MG 3 ML INH ONE (10:02)
[2018-01-19] MEDS ORDERED: Morphine INJ* 4 MG/ML 1 ML SYRINGE (NEW SYRINGE VERSION) IV PRN (10:33)
[2018-01-19] MEDS ORDERED: oxyCODONE TAB* 5 MG TAB PO PRN (10:34)
--- NOTE | 2018-01-19 10:59 | RAD ---
INDICATION: Shortness of breath increased work of breathing. COMPARISON: Comparison is made with a prior study from January 16, 2018. TECHNIQUE: A portable view of the chest was obtained. FINDINGS: The heart appears mildly enlarged. Again note is made of a large hiatal hernia. There is a central venous catheter entering from the left jugular approach. The catheter tip projects over the right atrium. There is diffuse prominence of the interstitial markings with more focal alveolar infiltrates in the left perihilar region and at both lung bases. These are new findings from the prior exam. There are also small bilateral pleural effusions which have increased from the previous study. IMPRESSION: FINDINGS MOST CONSISTENT WITH CONGESTIVE HEART FAILURE LESS LIKELY PNEUMONIA.
[2018-01-19] MEDS ORDERED: Morphine VIAL* 4 MG/ML VIAL (1 ml vial) IV PRN (12:00)
[2018-01-19 15:23] VITALS: BP 142/58
[2018-01-19] MEDS: PTO:Travoprost Z 0.004% OPHTH (NF) 2.5 ML BTL BOTH EYES SCH (21:20)
[2018-01-20] MEDS: Morphine ORAL CONCENTRATE* 5 MG/0.25 ML ORAL.SYRIN SL PRN ×3 (07:42→15:05)
--- NOTE | 2018-01-20 08:54 | PN ---
Subjective Date of Service: 01/19/18 Interval History: Pt seen and examined. Meds and labs reviewed. CC: RN called me early in AM given pt appeared ill ROS: Pt appears to mention she is in pain likely from her BL wrist fractures, however, not able to verbalize nor be specific with ROS PHYSICAL EXAM: GEN APPEARANCE: Awake, pt appeared ill HEENT: NC/AT, PERRLA, moist oral mucosa, (-) throat erythema NECK: Soft, supple, (-) cervical LAD, (-)JVD HEART: S1S2 WNL, RRR, No MRG CHEST: CTA, BL, GAE, No W/R/R ABD: Soft, ND/NT, NABS 4x Q EXT: No C/C/E SKIN: Warm to touch PSYCH: No active psychosis, hallucinations, depression, SI/HI Family History: Findings - Father of heart disease. Social History: Findings - Lives alone. No alcohol abuse. Smoked in 07/2012, ? recently. SDM is her friend Jerad Mclean [phone]. Past Medical History: Findings - Cholecystectomy, KATE-BSO. No children. Glaucoma, macular degeneration, OA. Objective Active Medications: Dextrose (D50w Syringe 50 Ml*) 12.5 gm IV PUSH .FOR FS < 60 - SS PRN PRN Reason: FS < 60 Dorzolamide/Timolol (Cosopt (Nf)) 1 drop BOTH EYES BID LETI; Protocol Last Admin: 01/19/18 21:21 Dose: Not Given Guaifenesin/Codeine Phosphate (Robitussin Ac 100mg-10mg*) 5 ml PO Q4H PRN PRN Reason: COUGH Last Admin: 01/16/18 04:14 Dose: 5 ml Morphine Sulfate (Morphine Oral Concentrate*) 5 mg SL Q2H PRN PRN Reason: PAIN Last Admin: 01/20/18 07:42 Dose: 5 mg Ondansetron HCl (Zofran Inj*) 4 mg IV Q4H PRN PRN Reason: n/v Last Admin: 01/17/18 09:08 Dose: 4 mg Oxycodone HCl (Roxycodone Tab*) 5 mg PO Q6H PRN PRN Reason: PAIN Last Admin: 01/19/18 21:14 Dose: 5 mg Pantoprazole Sodium (Protonix Iv*) 40 mg IV Q12H LETI Last Admin: 01/19/18 21:16 Dose: 40 mg Phytonadione (Vitamin K Oral Solution*) 5 mg PO Q72H LETI Last Admin: 01/18/18 12:27 Dose: 5 mg Potassium Chloride (Klor-Con Liquid*) 20 meq PO DAILY LETI Last Admin: 01/19/18 08:46 Dose: 20 meq Travoprost (Travatan Z 0.004% Opth (Nf)) 1 drop BOTH EYES BEDTIME LETI; Protocol Last Admin: 01/19/18 21:20 Dose: Not Given Vital Signs - 8 hr 01/20/18 01/20/18 05:32 07:42 Respiratory 16 22 Rate Oxygen Devices in Use Now: Nasal Cannula Result Diagrams: 01/19/18 05:25 01/19/18 05:25 Microbiology and Other Data: Microbiology 01/13/18 15:56 Aerobic Blood Culture - Final Blood Venous Not Reportable Anaerobic Blood Culture - Final Not Reportable 01/13/18 17:30 Nasal Screen MRSA (PCR) - Final Nasal Mrsa Not Detected Assess/Plan/Problems-Billing Ms Drummond is an 87 yo F who had a fall backwards at home, called for help but refused to come to the ER, placed in a chair and then when check on about 12hr later was found unresponsive on the floor and ultimately found to be toxic from an unintentional acetaminophen overdose, with now concerns for GI bleed, and 3rd degree heart block. She was also found to have bilateral distal radius fractures. - Patient Problems (1) End of life care Current Visit: Yes Status: Acute Code(s): Z51.5 - ENCOUNTER FOR PALLIATIVE CARE SNOMED Code(s): 430065245 Comment: -Reviewed case and comorbidities and Dr. Rodriguez note yesterday -Discussed case with Jerad Mclean, given next of kin has already ; he mentions he has HPA -Ray in presence of staff and common friend re-discussed case with pt and pt was clear she does not want a pacemaker and would like to have nature take its course. -Discussed palliative/hospice/End-of life care and will now be placed on TRANSPORTATION OFFICER care Status and Disposition: -Will touch base with Care coordinators after meeting with [facility]
[2018-01-20] MEDS: Pantoprazole IV* 40 MG IV SCH (09:10)
[2018-01-20] MEDS: CMC:Dorzolamide/Timolol OPTH (NF) 10 ML BOT BOTH EYES SCH (09:13)
[2018-01-20] MEDS: Potassium Chloride LIQUID* 20 MEQ PACKET PO SCH (09:13)
--- NOTE | 2018-01-21 05:06 | DS ---
CC: Dr. Minesh Green; Dr. Nikko Lawrence; Dr. Jesus Bardales; Dr. Wei Thomas; Dr. Lundberg DISCHARGE SUMMARY: DATE OF ADMISSION: DATE OF DISCHARGE: DISCHARGE DIAGNOSES: As follows: 1. Systemic inflammatory response syndrome, likely secondary to intermittent third degree A-V block in the setting of dehydration. 2. Accidental Tylenol overdose. 3. Bilateral wrist fracture, status post fall. 4. History of glaucoma and macular degeneration. 5. History of osteoarthritis. DISCHARGE MEDICATIONS: As follows: 1. Dorzolamide 1 drop both b.i.d. 2. Robitussin A-C 100 mg/10 mg 5 mL p.o. q.4 p.r.n. 3. Potassium chloride 20 mEq p.o. daily. 4. Travoprost 1 drop both eyes q.h.s. 5. Atropine 1% 2 drops sublingual q.2 hours p.r.n. 6. Lorazepam 0.5 mg p.o. q.6 p.r.n. dispensed 12 with 0 refills. 7. Morphine sulfate oral concentrated solution (Roxanol) 10 mg p.o. q.2 hours p.r.n. Hold for sedat ion and/or respiratory rate less than 10 along with lorazepam. 8. Prochlorperazine 10 mg p.o. q.6 p.r.n. HISTORY OF PRESENT ILLNESS/HOSPITAL COURSE: The patient is an 87-year-old lady with a maria fernanda le known and/or documented past medical history, who is living at home and had a recent fall at home and although EMS was called at that time, she refused to go to the ER. She was then propped up in a chair and then a 12-hour check later revealed that the patient was found unresponsive on the floor, u ltimately found to have an unintentional Tylenol overdose with Tylenol being 533 mcg/mL, the therapeu tic concentration of which is only less than 50 mcg/mL, toxic concentration considered to be greater than 120 mcg/mL. She was treated with acetylcysteine, initially admitted to the ICU and has finished this course quite well. In her subsequent evaluation, she was found to have bilateral wrist fractur es and status post plaster splints placed by Orthopedic Surgery. During the course of her evaluation , she was also found to have an intermittent third degree A- V block; however, when this was discuss ed with her along with its risks and benefits, she mentioned that she would rather have nature take i ts course and refuses any pacemaker placement. This was then discussed with her health power of atto rney, Jerad, regarding her multiple comorbidities as well as likelihood of another fall or a deadly arr hythmia that could arise in the future. Despite knowing the risks, the patient declined this even in presence with Jerad, her HPA, and is clearly choosing comfort measures only rather than subsequent med ical therapy. Therefore, she was made comfort measures only care per request and will be transferred to [facility] for comfort care measures only. She had been advised to follow up and/or c all her facility provider post discharge and to contact her facility provider for any refills regardi ng her prescriptions. She was advised to call my office regarding any questions, concerns, or furthe r clarifications regarding her discharge plans and/or prescriptions and to take her medications as pr escribed. REVIEW OF SYSTEMS: She denied any recent headaches, dizziness, fevers, chills, nausea, vomiting, must[address] st pain, shortness of breath, increased coughing or sputum production, abdominal pain, diarrhea, cons tipation, pain and/or increased frequency on urination, myalgias, arthralgias, throat pain, or [place] in lesions. The rest of the 14-point review of systems is otherwise unremarkable. PHYSICAL EXAMINATION: Vital signs show a respiratory rate of 16. The rest of the vital signs is not obtained given the patient is now currently comfort measures. General Appearance: The patient is aw abimael, appears comfortable, lying supine in her bed, awake and oriented. HEENT: Normocephalic, atraum atic. PERRLA. Extraocular muscles intact. Negative for icterus. Moist oral mucosa. Negative thro at erythema. Neck is soft, supple with no cervical lymphadenopathy. No JVD. Heart: S1, S2 within n ormal limits. Regular rate and rhythm. No murmurs, rubs, and gallops. Chest: Clear to auscultatio n bilaterally. Good air entry. No wheezes, rales, no rhonchi. Abdomen is soft, nondistended, nonte nder. Normoactive bowel sounds x4 q. Extremities: No cyanosis, clubbing, or edema. Psychiatric: No active psychosis, depression, suicidal nor homicidal ideations. Skin is warm to touch. TIME SPENT: The total time spent evaluating the patient, reviewing pertinent data, and appropriate d ocumentation is 35 minutes. [id number]/[facility] #: [id number]
== END 2018-01-20 15:00 | DRG 918 ==
LOC: ED 13:22 → ICU 16:20 → MEDTELE 01-18 10:11
PROVIDERS: ADMIT Internal Medicine; ATTEND Student in an Organized Health Care Education/Training Program
PROC: 05HN33Z Insertion of Infusion Device into Left Internal Jugular Vein, Percutaneous Approach (ICD-10-PCS; principal; 2018-01-13)
PROC: B544ZZA Ultrasonography of Left Jugular Veins, Guidance (ICD-10-PCS; 2018-01-13)
DX: T39.1X1A Poisoning by 4-Aminophenol derivatives, accidental (unintentional), initial encounter (principal); S52.501A Unspecified fracture of the lower end of right radius, initial encounter for closed fracture; S52.502A Unspecified fracture of the lower end of left radius, initial encounter for closed fracture; I44.2 Atrioventricular block, complete; R65.10 Systemic inflammatory response syndrome (SIRS) of non-infectious origin without acute organ dysfunction; J90 Pleural effusion, not elsewhere classified; E87.2 Acidosis; M19.90 Unspecified osteoarthritis, unspecified site; H35.30 Unspecified macular degeneration; H40.9 Unspecified glaucoma; R40.2412 Glasgow coma scale score 13-15, at arrival to emergency department; E66.9 Obesity, unspecified; K44.9 Diaphragmatic hernia without obstruction or gangrene; I44.7 Left bundle-branch block, unspecified; W17.89XA Other fall from one level to another, initial encounter; E87.6 Hypokalemia; D64.9 Anemia, unspecified; Z51.5 Encounter for palliative care; S93.401A Sprain of unspecified ligament of right ankle, initial encounter; E86.0 Dehydration; F17.200 Nicotine dependence, unspecified, uncomplicated; Z87.11 Personal history of peptic ulcer disease; Z68.30 Body mass index [BMI] 30.0-30.9, adult; Z90.49 Acquired absence of other specified parts of digestive tract; Z90.710 Acquired absence of both cervix and uterus; Z82.49 Family history of ischemic heart disease and other diseases of the circulatory system; Z90.722 Acquired absence of ovaries, bilateral; Y92.009 Unspecified place in unspecified non-institutional (private) residence as the place of occurrence of the external cause
CPT/HCPCS: 36415; 70450; 71045; 80048; 80053; 80076; 80307; 80320; 80329; 81003; 82140; 82550; 83605; 83735; 83880; 84100; 84443; 84484; 85025; 85060; 85610; 87040; 87641; 93005; 93306; 94640; 99284; A9270-GY; G0480; G8978-GP-CM; G8979-GP-CI; G8987-GO-CM; G8988-GO-CI; J0132; J0461; J1100; J1265; J1644; J2060; J2270; J2405; J2543; J3430; J3475; J3480; J7060